=== PATIENT | male | born 1960 | race African-American/Black ===

== ENCOUNTER 2017-04-12 12:06 | Inpatient (IN) | payer OTHER ==
[2017-04-12] MEDS ORDERED: HYDROcodone/Acetaminophen 5/325 mg Tablet PO PRN (15:06)
[2017-04-12] MEDS ORDERED: Nitroglycerin 0.4 MG TAB (25 Tab Bottle) PO PRN (15:06)
[2017-04-12] MEDS ORDERED: Ondansetron ODT 4 MG TAB PO PRN (15:06)
[2017-04-12] MEDS ORDERED: Pepto Bismol Chew TAB PO PRN (15:06)
[2017-04-12 15:07] VITALS: BMI 38.0
[2017-04-12 16:05] LABS: Troponin I 0.121 ng/mL (< 0.028)
--- NOTE | 2017-04-12 16:27 | HP ---
DATE OF ADMISSION: 04/12/2017 CHIEF COMPLAINT: Shortness of breath. HISTORY OF PRESENT ILLNESS: This is a 56-year-old young -[place] male who presented to the ospital to [place] [facility] with acute shortness of breath. Patient mentioned that when he woke up this mo rning, was acutely short of breath and was unable to breathe and was unable to lie down on a flat bed . So he woke up and had some chest pain, so he decided to come to the ER. The patient was transferr ed from [place] [facility] and the patient was found to be acutely short of breath, but was able to stab ilize on 4 liters of nasal cannula. Patient had a chest x-ray showing evidence of pulmonary edema an d elevated BNP of 300 suggestive of new onset congestive heart failure. The patient denied having si milar symptoms in the past. He does complain of chest pain, but right now his symptoms are completel y resolved. He looks tachypneic. No nausea, no vomiting. PAST MEDICAL HISTORY: 1. Hypertension. 2. Type 2 diabetes mellitus. 3. History of depression. 4. History of congestive heart failure with EF of 35%-40%. 5. History of coronary artery disease. PAST SURGICAL HISTORY: He denies having any recent surgeries. SOCIAL HISTORY: The patient is a smoker. No history of alcohol, no history of illicit drug use. He lives with his . FAMILY HISTORY: Significant for diabetes in the mother and end-stage renal disease in his sister. HOME MEDICATIONS: Have been reviewed and reconciled. Please see the medication list. ALLERGIES: No known drug allergies. REVIEW OF SYSTEMS: The systems reviewed are, Cardiovascular: With evidence of shortness of breath and chest pain. Respiratory: The patient show ed evidence of hypoxia with shortness of breath. All other systems are reviewed and found to be nega tive at this time except the ones described in HPI. The following complete review of systems was neg ative, unless otherwise mentioned in the HPI or below: Constitutional: Weight loss or gain, sense o f well-being, ability to conduct usual activities, exercise tolerance. Skin/Breast: Rash, itching, changes in hair growth or loss, nail changes, breast lumps, tenderness, swelling, nipple discharge. Eyes: Vision, double vision, tearing, blind spots, pain. ENT/Mouth: Headaches (location, time of o nset, duration, precipitating factors), vertigo, lightheadedness, injury. Vision, double vision, tear ing, blind spots, pain, nose bleeding, colds, obstruction, discharge, dental difficulties, gingival b leeding, dentures, neck stiffness, pain, tenderness, masses in thyroid or other areas. Gastrointesti nal: Poor appetite, dysphagia, indigestion, abdominal pain, heartburn, eructation, nausea, vomiting, hematemesis, jaundice, constipation, or diarrhea, abnormal stools (andrea-colored, tarry, bloody, grea sy, foul smelling), flatulence, hemorrhoids, recent changes in bowel habits. Genitourinary: Urgency , frequency, dysuria, nocturia, hematuria, polyuria, oliguria, unusual (or change in) color of urine, stones, hesitancy, change in size of stream, dribbling, acute retention or incontinence, libido, pot ency. Musculoskeletal: Pain, swelling, redness or heat of muscles or joints, limitation, of motion, muscular weakness, atrophy, cramps. Neurologic/Psychiatric: Convulsions, paralyses, tremor, incoor dination, parasthesias, difficulties with memory of speech, sensory or motor disturbances, or muscula r coordination (ataxia, tremor), emotional problems, anxiety, depression, previous psychiatric care, unusual perceptions, hallucinations. Allergy/Immunologic: Skin rash, anemia, bleeding tendency, pee ydipsia, polyuria, intolerance to heat or cold. PHYSICAL EXAMINATION: VITAL SIGNS: Blood pressures are 169/85, heart rate is 66, respirations 24, saturation is 99% on 3 l iters. GENERAL: The patient is moderately built and moderately nourished status. He appears to be in mild distress with shortness of breath. He is seen sitting on the wheelchair, does not appear to be in ac [place] distress. HEENT: Atraumatic, normocephalic. PERRLA. Extraocular muscles were intact. Oral mucosa is pink an d moist. CARDIOVASCULAR: S1, S2 normal. No murmurs, rubs or gallops. LUNGS: Bilateral air entry was equal. Crackles were noted in the lower bases. ABDOMEN: Soft, nontender, no guarding, no rebound tenderness. Bowel sounds normal. MUSCULOSKELETAL: The patient has 1-2+ pedal edema up to the knees. No joint tenderness, no joint sw elling. SKIN: No cyanosis, no edema, no rash, no pallor. SURVEILLANCE SPECIALIST: Cranial nerve examination II-XII intact. NEUROLOGIC: No focal deficits were noted. LABORATORY DATA: Sodium is 142, potassium 4.2, chloride 111, bicarbonate is 21, BUN is 19, creatinin e 2.06. WBC 6.0, hemoglobin 11.8, hematocrit 37.1. His troponins are 0.146. BNP is 376. ASSESSMENT AND PLAN: 1. Acute congestive heart failure, likely diastolic dysfunction. 2. Acute hypoxic respiratory failure. 3. Non-ST elevation myocardial infarction. 4. History of type 2 diabetes mellitus. 5. Hypertension. 6. Hyperlipidemia. 7. History of coronary artery disease. 8. Acute on chronic kidney disease stage III. PLAN: 1. To start the patient on Lasix at 40 mg IV b.i.d. and continue to diurese the patient as there is clear evidence of pulmonary edema on chest x-ray. We will start the patient on spironolactone 12.5 m g daily, and also start him on Coreg at 3.125 mg p.o. We will get a 2D echo to look for any evidence of worsening of his EF. His previous EF was 2 years ago and that was around 45%. We will consult C ardiology. 2. The patient has evidence of acute hypoxia likely from CHF. We will continue the nasal cannula an d wean him off to keep the saturations more than 92%. There is no evidence of pneumonia at this time . We will closely monitor. 3. The patient has elevated creatinine, but his baseline creatinine is around 1.7-2. Most likely e patient has a cardiorenal syndrome. We will continue to treat with Lasix and will closely monitor. Avoid any other nephrotoxic medications. 4. The patient has type 2 diabetes mellitus. We will restart the patient's home medications. Plan to keep the blood sugar in 140-180. 5. Hypertension. The patient has poorly controlled hypertension. We will start the patient on his home medications and optimize his blood pressure, is to keep it less than 130/80. 6. History of coronary artery disease. We will start the patient on aspirin. The patient has eleva sarika troponins. The first troponin is elevated. We will repeat and look at the trend of the troponin s. We will follow up with the Cardiology recommendations at that time. 7. DVT prophylaxis. Lovenox 40 mg subcu daily. Dictating Physician, Ismael Boss, has spent 70 minutes on this patient.
--- NOTE | 2017-04-12 20:33 | CON ---
DATE OF CONSULTATION: 04/12/2017 HISTORY OF PRESENT: Patient is a 56-year-old gentleman who presents with increasing dyspnea. The patient has a long history of a cardiomyopathy. The patient was seen in 01/2015, and he was found to have a normal EKG. He subsequently underwent a cardiac catheterization. He was found to have a moderate decrease in left ventricular systolic function with estimated ejection fraction approximately 30%-35%. He was found to have a 20% lesion in the right coronary artery, but was otherwise free of significant disease. The patient was placed on medical therapy. He has not been compliant with his medications or follow up. The patient presented with increasing dyspnea. He denied having any chest discomfort. PAST MEDICAL HISTORY: 1. Cardiomyopathy. 2. Hypertension. 3. Diabetes mellitus. 4. Chronic renal failure. 5. Hypercholesterolemia. PAST SURGICAL HISTORY: Shoulder surgery. SOCIAL HISTORY: Patient has a long history of tobacco abuse. He denies any use of excess alcohol. He is . FAMILY HISTORY: There is a positive family history of coronary artery disease. MEDICATIONS: None. ALLERGIES: No known drug allergies. REVIEW OF SYSTEMS: Ten-point system otherwise unremarkable. PHYSICAL EXAMINATION: GENERAL/VITAL SIGNS: This is a middle-aged gentleman in mild distress with a blood pressure of 169/85, heart rate was 66. NECK: No jugular venous distention. LUNGS: Clear to auscultation. HEART: Regular rate and rhythm, normal S1, S2, no murmurs. ABDOMEN: Distended. EXTREMITIES: Showed no edema. SKIN: Warm and dry. NEUROLOGIC: Nonfocal. VASCULAR: Radial pulses are 2+. LABORATORY DATA: White blood count 6.0, hemoglobin 11.8, hematocrit 37.1, platelets are 206. Sodium is 142, potassium 4.0, chloride 111, bicarbonate 21, BUN 19, creatinine is 2.0, glucose 236. BNP was 376, troponin was 0.146. EKG revealed normal sinus rhythm with a premature ventricular contraction, T-wave abnormality suggestive of ischemia. IMPRESSION: 1. Congestive heart failure. 2. History of severe nonischemic cardiomyopathy. 3. Diabetes mellitus. 4. Hypertension. 5. Chronic renal failure. 6. Dyslipidemia. 7. Tobacco abuse. 8. Obesity. PLAN: This gentleman presents with mild congestive heart failure. He has been noncompliant with his medications. I explained the life-threatening consequences of being compliant with his medications and follow up. From a cardiac standpoint, the patient has been restarted on JESSE inhibitor therapy and Coreg. He has also been started on low-dose spironolactone. We will follow this patient with you through his hospitalization. KP
[2017-04-12] MEDS: Carvedilol 6.25 MG TAB PO SCH (20:39)
[2017-04-12] MEDS: Atorvastatin Calcium 40 MG TAB PO SCH (20:39)
[2017-04-12] MEDS ORDERED: Carvedilol 3.125 MG TAB PO SCH (21:00)
[2017-04-12] MEDS ORDERED: Enoxaparin Sodium 80 MG/0.8 ML SYRINGE SC SCH ×2 (21:00)
[2017-04-12] MEDS: Nitroglycerin 2% Ointment 1 INCH/1 GM Packet TOP SCH (23:06)
[2017-04-13 05:23] LABS: #Lymphocytes 1.1 thou/uL (1.20-3.40); #Monocytes 0.9 thou/uL (0.11-0.59); #Neutrophils 13.5 thou/uL (1.40-6.50); %Basophils 0.1 % (0.0-1.0); %Eosinophils 0.2 % (0.0-10.0); %Lymphocytes 6.9 % (21.0-51.0); %Monocytes 5.9 % (0.0-10.0); %Neutrophils 86.9 % (42.0-75.0); Hemoglobin 12.1 g/dL (14.0-18.0); Mean Corpuscular HGB CONC 32.1 g/dL (32.0-36.0); Mean Corpuscular Hemoglobin 29.1 pg (27.0-31.0); Mean Corpuscular Volume 90.6 fl (80.0-94.0); Mean Platelet Volume 9.2 fL (7.4-10.4); Platelet Count 241 thou/uL (130-400); RBC Distribution Width 13.8 % (11.5-14.5); Red Blood Cell (RBC) Count 4.16 mill/uL (4.70-6.10); White Blood Cell (WBC) Count 15.6 thou/uL (4.8-10.8)
[2017-04-13 05:34] LABS: Anion Gap 13 mmol/L (10-20); BUN (Urea Nitrogen) 24 mg/dL (8.4-25.7); Calc. Creatinine Clearance 66 mL/min (70-130); Calcium 9.4 mg/dL (7.8-10.44); Carbon Dioxide 25 mmol/L (22-29); Cardiac Risk 5.4 (Less than 4.5); Chloride 106 mmol/L (98-107); Cholesterol 226 mg/dl (< 200 Desired); Estimated GFR-MDRD 41; Glucose 155 mg/dL (70-105); HDL Cholesterol 42 mg/dL (>60 Neg Risk); LDL Cholesterol, Calculated 160 mg/dL; Potassium 3.9 mmol/L (3.5-5.1); Sodium 140 mmol/L (136-145); Triglycerides 121 mg/dL (Less than 150)
[2017-04-13] MEDS: Nitroglycerin 2% Ointment 1 INCH/1 GM Packet TOP SCH ×3 (05:42→21:40)
[2017-04-13] MEDS: Furosemide 40 MG/4 ML VIAL SLOW IVP SCH ×2 (05:43→13:49)
[2017-04-13] MEDS ORDERED: Spironolactone 25 MG TAB PO SCH (09:00)
[2017-04-13] MEDS ORDERED: Lisinopril 5 MG TAB PO SCH (09:00)
[2017-04-13] MEDS ORDERED: Lisinopril 2.5 MG TAB PO SCH (09:00)
[2017-04-13] MEDS: Enoxaparin Sodium 30 MG/0.3 ML SYRINGE SC SCH (09:43)
[2017-04-13] MEDS: Carvedilol 6.25 MG TAB PO SCH (09:43)
[2017-04-13] MEDS: Spironolactone 25 MG TAB PO SCH (09:44)
[2017-04-13] MEDS: Nicotine 14 MG PATCH TOP SCH (12:17)
[2017-04-13] MEDS ORDERED: Carvedilol 6.25 MG TAB PO SCH ×2 (12:30→21:00)
[2017-04-13] MEDS ORDERED: Lisinopril 10 MG TAB PO SCH (12:30)
--- NOTE | 2017-04-13 16:17 | PDOC.PN ---
- Subjective Encounter Start Date: 04/13/17 Encounter Start Time: 11:30 Patient is seen today, alert and oriented, No other Concern snoted. Discused with and patient about being compliant with his Home meds. - Objective Resuscitation Status: Resuscitation Status FULL:Full Resuscitation MAR Reviewed: Yes Vital Signs & Weight: Vital Signs (12 hours) Temp Pulse Pulse Pulse Resp BP BP 04/13/17 13:50 60 79 144/87 H 04/13/17 13:49 140/79 04/13/17 13:48 140/79 04/13/17 11:45 97.7 F 65 16 04/13/17 09:43 63 191/101 H 04/13/17 08:00 98.4 F 63 18 04/13/17 07:30 67 66 160/90 H BP BP Pulse Ox Pulse Ox Pulse Ox 04/13/17 13:50 151/84 H 97 98 04/13/17 13:49 04/13/17 13:48 04/13/17 11:45 140/79 98 04/13/17 09:43 04/13/17 08:00 191/101 H 96 04/13/17 07:30 144/81 H Weight Weight 260 lb I&O: 04/12/17 04/13/17 04/14/17 06:59 06:59 06:59 Intake Total 950 Balance 950 Result Diagrams: 04/13/17 04:21 04/13/17 04:21 Additional Labs: Accuchecks 04/13/17 11:05 POC Glucose 141 H Phys Exam - Physical Examination HEENT: PERRLA, moist MMs Neck: no nodes, no JVD Respiratory: wheezing present Cardiovascular: RRR, no significant murmur, no rub Gastrointestinal: soft, non-tender Musculoskeletal: pulses present, edema present Neurological: non-focal, normal sensation Lymphatic: no nodes Psychiatric: normal affect Dx/Plan (1) NSTEMI (non-ST elevated myocardial infarction) Code(s): I21.4 - NON-ST ELEVATION (NSTEMI) MYOCARDIAL INFARCTION Status: Acute Comment: PT is on Aspirin, And BB, ACEI. Will continue to Monitor Cardiology Following (2) CKD stage 3 due to type 2 diabetes mellitus Code(s): E11.22 - TYPE 2 DIABETES MELLITUS W DIABETIC CHRONIC KIDNEY DISEASE; N18.3 - CHRONIC KIDNEY DISEASE, STAGE 3 (MODERATE) Status: Chronic Comment: Persistant worsening from diuresis, but Pt has Cardio renal syndrome , will cotninue to Monitor (3) Chronic systolic (congestive) heart failure Code(s): I50.22 - CHRONIC SYSTOLIC (CONGESTIVE) HEART FAILURE Status: Acute Comment: Systolic Dysfuicntion, with Worsening EF, per Cardiology No further intervention at this time. (4) Hyperlipidemia Code(s): E78.5 - HYPERLIPIDEMIA, UNSPECIFIED Status: Chronic (5) Hypertension Code(s): I10 - ESSENTIAL (PRIMARY) HYPERTENSION Status: Chronic Comment: Uncontrolled, Will Increase ACEI and BB, will do hydralazine 20mg IV q 4 hrs PRN - Plan cont current plan of care, plan discussed w/ family, PT/OT, social work instructor, incentive spirometry, DVT proph w/lovenox * . - Discharge Day Encounter end time: 12:10 Review of Systems - Review of Systems Constitutional: negative: fever, chills, sweats, weakness, malaise, other ENT: negative: Ear Pain, Ear Discharge, Nose Pain, Nose Discharge, Nose Congestion, Mouth Pain, Mouth Swelling, Throat Pain, Throat Swelling, Other Respiratory: Cough, Shortness of Breath, SOB with Excertion Cardiovascular: negative: chest pain, palpitations, orthopnea, paroxysmal nocturnal dyspnea, edema, light headedness, other Gastrointestinal: negative: Nausea, Vomiting, Abdominal Pain, Diarrhea, Constipation, Melena, Hematochezia, Other Genitourinary: negative: Dysuria, Frequency, Incontinence, Hematuria, Retention , Other Musculoskeletal: negative: Neck Pain, Shoulder Pain, Arm Pain, Back Pain, Hand Pain, Leg Pain, Foot Pain, Other Skin: negative: Rash, Lesions, Ken, Bruising, Other - Medications/Allergies Allergies/Adverse Reactions: Allergies Allergy/AdvReac Type Severity Reaction Status Date / Time No Known Allergies Allergy Verified 04/12/17 15:10 Medications: Current Medications Hydrocodone Bitart/Acetaminophen (Graff 5/325) 1 tab PO Q4H PRN PRN Reason: Moderate Pain (4-6) Aspirin (Aspirin Chewable) 81 mg PO DAILY [facility] Last Admin: 04/13/17 09:42 Dose: 81 mg Atorvastatin Calcium (Lipitor) 40 mg PO HS [facility]IR[facility] Last Admin: 04/12/17 20:39 Dose: 40 mg Bismuth Subsalicylate (Pepto Bismol) 2 tab PO Q1H PRN PRN Reason: Diarrhea/Loose Stools Carvedilol (Coreg) 12.5 mg PO BID [facility] Enoxaparin Sodium (Lovenox) 30 mg SC 0900 [facility] Last Admin: 04/13/17 09:43 Dose: 30 mg Furosemide (Lasix) 40 mg SLOW IVP 0600,1400 [facility] Last Admin: 04/13/17 13:49 Dose: 40 mg Lisinopril (Zestril) 10 mg PO DAILY [facility] Nicotine (Nicoderm Patch) 14 mg TOP Q24HR [facility] Last Admin: 04/13/17 12:17 Dose: 14 mg Nitroglycerin (Nitrostat) 0.4 mg PO Q5MIN PRN PRN Reason: Chest Pain Nitroglycerin (Nitro-Bid 2% Ointment) 0.5 inch TOP Q8HR [facility] Last Admin: 04/13/17 13:50 Dose: Not Given Ondansetron HCl (Zofran Odt) 4 mg PO Q6H PRN PRN Reason: Nausea/Vomiting Spironolactone (Aldactone) 25 mg PO DAILY [facility] Last Admin: 04/13/17 09:44 Dose: 25 mg
--- NOTE | 2017-04-13 16:37 | RAD ---
EXAM: ONE VIEW CHEST 04/13/17 HISTORY: Shortness of breath. COMPARISON: 04/11/17. FINDINGS: Portable upright chest demonstrates persistent cardiomegaly. Pulmonary vessels are slightly prominent . Costophrenic angles are clear. No mass. No consolidation. No pneumothorax or osseous abnormalities. IMPRESSION: Cardiomegaly. Pulmonary vascular prominence. POS: [facility]
[2017-04-13] MEDS: Atorvastatin Calcium 40 MG TAB PO SCH (21:39)
[2017-04-14 05:19] LABS: #Basophils 0.1 thou/uL (0.0-0.2); #Eosinphils 0.1 thou/uL (0.0-0.7); #Lymphocytes 2.5 thou/uL (1.20-3.40); #Monocytes 0.7 thou/uL (0.11-0.59); %Basophils 1.1 % (0.0-1.0); %Eosinophils 1.5 % (0.0-10.0); %Lymphocytes 26.3 % (21.0-51.0); %Monocytes 7.1 % (0.0-10.0); %Neutrophils 64.1 % (42.0-75.0); Hemoglobin 12.9 g/dL (14.0-18.0); Mean Corpuscular HGB CONC 33.2 g/dL (32.0-36.0); Mean Corpuscular Hemoglobin 30.1 pg (27.0-31.0); Mean Corpuscular Volume 90.7 fl (80.0-94.0); Mean Platelet Volume 8.9 fL (7.4-10.4); Platelet Count 249 thou/uL (130-400); RBC Distribution Width 13.9 % (11.5-14.5); Red Blood Cell (RBC) Count 4.29 mill/uL (4.70-6.10); White Blood Cell (WBC) Count 9.4 thou/uL (4.8-10.8)
[2017-04-14 05:32] LABS: Anion Gap 11 mmol/L (10-20); BUN (Urea Nitrogen) 24 mg/dL (8.4-25.7); Calc. Creatinine Clearance 68 mL/min (70-130); Calcium 9.4 mg/dL (7.8-10.44); Carbon Dioxide 29 mmol/L (22-29); Chloride 105 mmol/L (98-107); Estimated GFR-MDRD 43; Glucose 139 mg/dL (70-105); Potassium 3.7 mmol/L (3.5-5.1); Sodium 141 mmol/L (136-145)
[2017-04-14] MEDS: Nitroglycerin 2% Ointment 1 INCH/1 GM Packet TOP SCH (06:00)
[2017-04-14] MEDS: Furosemide 40 MG/4 ML VIAL SLOW IVP SCH (06:00)
[2017-04-14] MEDS ORDERED: Carvedilol 6.25 MG TAB PO SCH (08:50)
[2017-04-14] MEDS: Enoxaparin Sodium 30 MG/0.3 ML SYRINGE SC SCH (08:53)
[2017-04-14] MEDS: Spironolactone 25 MG TAB PO SCH (08:54)
[2017-04-14] MEDS ORDERED: Carvedilol 25 MG TAB PO SCH (09:00)
[2017-04-14] MEDS ORDERED: Lisinopril 10 MG TAB PO SCH (09:00)
[2017-04-14] MEDS ORDERED: Lisinopril 5 MG TAB PO SCH (09:00)
[2017-04-14] MEDS ORDERED: BIDIL PO SCH (09:00)
--- NOTE | 2017-04-14 10:55 | DIS ---
DATE OF ADMISSION: 04/12/2017 DATE OF DISCHARGE: 04/14/2017 ADMITTING DIAGNOSIS: Acute hypoxic respiratory failure. DISCHARGE DIAGNOSES: Acute congestive heart failure exacerbation, systolic dysfunction. SECONDARY DIAGNOSES: 1. Non-ST elevation myocardial infarction. 2. Type 2 diabetes mellitus. 3. Hypertension. 4. Hyperlipidemia. 5. History of coronary artery disease. 6. Acute on chronic kidney disease stage 3. HEARING SCREEN COORDINATOR INVOLVED: Dr. Quiroz from Cardiology. HISTORY OF PRESENT ILLNESS AND HOSPITAL COURSE: In brief, this is a 56-year-old young -[place] male with known history of congestive heart failure and a known patient to Dr. Burkett, presented to [place] [facility] with acute shortness of breath and the patient was transferred here. The patient was found to have severe CHF exacerbation. The patient is very noncompliant with his medication, had ma rkedly elevated blood pressures and volume overload state. The patient was started on Lasix 40 mg IV b.i.d. and also started on spironolactone. The patient was on metoprolol at home, but was not takin g, so Coreg was started, but later on changed to metoprolol at home for the home dose. Patient was s een by Cardiology, Dr. Quiroz and suggested for compliance and take medications regularly and follo wed low sodium diet. Also recommended BiDil and given some samples for the patient to take. Patient was discharged home in stable condition. PHYSICAL EXAMINATION: VITAL SIGNS: Blood pressure is 131/70, heart rate is 57, respirations 16, saturation 97%. GENERAL: The patient is moderately built and moderately nourished, does not appear to be in any acut e distress. CARDIOVASCULAR: S1, S2 normal. No murmurs, rubs or gallops. LUNGS: Bilateral air entry was equal. No wheezing, no crackles. ABDOMEN: Soft and nontender. No guarding or rebound tenderness. Bowel sounds normal. MUSCULOSKELETAL: No calf tenderness. No pedal edema. No joint tenderness, no joint swelling. SKIN: No cyanosis, no erythema, no rash, no pallor. CENTRAL NERVOUS SYSTEM: Cranial nerve examination II-XII intact. No focal deficits were noted. HOME MEDICATIONS: 1. Aspirin 81 mg daily. 2. Lasix 40 mg p.o. b.i.d. 3. Glyburide 5 mg p.o. daily. 4. Hydrocodone 10/325 mg one tablet p.o. p.r.n. 5. BiDil 20/37.5 mg 1 tablet p.o. t.i.d. 6. Lisinopril 40 mg daily. 7. Metformin 1000 mg p.o. b.i.d. 8. Metoprolol 50 mg p.o. daily. 9. Simvastatin 10 mg p.o. at bedtime. 10. Spironolactone 25 mg p.o. daily. DISCHARGE INSTRUCTIONS: Continue activity as tolerated. Advised to follow up with a cardiac diet. Advised to continue the home medications without fail. Advised to follow up with Cardiology in 1-2 w eeks. Advised to return to the ER. The patient has persistent shortness of breath. Dictating physician, Ismael Boss, has spent 35 minutes with this patient on the day of discharge.
[2017-04-14 13:02] VITALS: TEMP 97.8
[2017-04-14] MEDS: Nicotine 14 MG PATCH TOP SCH (13:06)
[2017-04-14 15:40] VITALS: BP 139/79
== END 2017-04-14 13:21 | disposition home or self-care (01) | DRG 280 ==
LOC: ERS 12:06 → OBSVTOIN 13:11 → 2SW 13:11 → 2NO 04-13 14:25
PROVIDERS: ADMIT Internal Medicine; ATTEND Internal Medicine
DX: I13.0 Hypertensive heart and chronic kidney disease with heart failure and stage 1 through stage 4 chronic kidney disease, or unspecified chronic kidney disease (principal); I21.4 Non-ST elevation (NSTEMI) myocardial infarction; J96.01 Acute respiratory failure with hypoxia; I50.23 Acute on chronic systolic (congestive) heart failure; N17.9 Acute kidney failure, unspecified; E11.22 Type 2 diabetes mellitus with diabetic chronic kidney disease; N18.3 Chronic kidney disease, stage 3 (moderate); E78.5 Hyperlipidemia, unspecified; F17.210 Nicotine dependence, cigarettes, uncomplicated; E66.9 Obesity, unspecified; I42.9 Cardiomyopathy, unspecified; Z68.38 Body mass index [BMI] 38.0-38.9, adult
CPT/HCPCS: 36415; 36416; 71045; 80048; 80061; 83880; 85025; 93306; 93798; 94760; 99285; G8987-GO-CI; G8988-GO-CI; G8989-GO-CI; J1650; J1940

== ENCOUNTER 2018-04-13 22:36 | Observation (INO) | payer OTHER ==
[2018-04-13 23:21] LABS: Anion Gap 15 mmol/L (10-20); BUN (Urea Nitrogen) 23 mg/dL (8.4-25.7); Calc. Creatinine Clearance 0 mL/min (70-130); Calcium 8.7 mg/dL (7.8-10.44); Carbon Dioxide 23 mmol/L (22-29); Chloride 109 mmol/L (98-107); Estimated GFR-MDRD 30; Glucose 268 mg/dL (70-105); Potassium 4.5 mmol/L (3.5-5.1); Sodium 142 mmol/L (136-145)
[2018-04-14 02:46] LABS: CKMB 2.6 ng/mL (0-6.6)
[2018-04-14] MEDS ORDERED: Furosemide 40 MG/4 ML VIAL SLOW IVP SCH (06:00)
[2018-04-14 11:07] LABS: Anion Gap 14 mmol/L (10-20); BUN (Urea Nitrogen) 25 mg/dL (8.4-25.7); Calc. Creatinine Clearance 58 mL/min (70-130); Calcium 8.8 mg/dL (7.8-10.44); Carbon Dioxide 22 mmol/L (22-29); Chloride 108 mmol/L (98-107); Estimated GFR-MDRD 32; Glucose 276 mg/dL (70-105); Potassium 4.4 mmol/L (3.5-5.1); Sodium 140 mmol/L (136-145)
[2018-04-14] MEDS ORDERED: Senokot S 8.6-50 MG TAB PO PRN (11:21)
[2018-04-14] MEDS ORDERED: Guaifenesin DM 100-10/5 ML UDCUP PO PRN (11:21)
[2018-04-14] MEDS ORDERED: HumaLOG 300 UNITS/3 ML VIAL SC PRN (11:21)
[2018-04-14] MEDS ORDERED: Acetaminophen 325 MG TAB PO PRN (11:21)
[2018-04-14] MEDS ORDERED: Dextrose 50% Abboject 50 ML SYRINGE SLOW IVP PRN (11:21)
[2018-04-14] MEDS ORDERED: Dextrose 5% in Water 1,000 ML IV PRN (11:21)
[2018-04-14] MEDS ORDERED: Calcium Carbonate 500 MG ChewTAB PO PRN (11:21)
[2018-04-14] MEDS ORDERED: Doxycycline 100 MG CAP PO SCH (11:30)
[2018-04-14] MEDS ORDERED: Insulin Regular 300 UNITS/3 ML VIAL SC SCH (11:45)
--- NOTE | 2018-04-14 12:42 | HP ---
REASON FOR ADMISSION: Mild CHF exacerbation, COPD exacerbation. HISTORY OF PRESENTING ILLNESS: The patient gives history of having severe wheezing from yesterday evening. This got worse to the point that he told his mom and EMS was summoned. The patient initially went to [facility], from where he was transferred here. He is currently feeling better. His wheezing has come down a little bit. The patient states he normally ambulates inside the house. He has not seen Dr. Quiroz in a long time now. No complaints of fever. The patient continues to smoke half to one pack a day. No complaints of chest pain or palpitations at present. He is comfortable at 45 degrees head end elevation on the bed at present. PAST MEDICAL AND SURGICAL HISTORY: History of nonischemic cardiomyopathy with ejection fraction of around 25%; chronic kidney disease, stage 3; diabetes mellitus type 2; obesity; hypertension; dyslipidemia; tobacco abuse; and right shoulder surgery. CURRENT MEDICATIONS: The patient is on, 1. Clonidine 0.2 mg p.o. three times daily. 2. Glyburide 5 mg daily. 3. Lasix 40 mg daily. ALLERGIES: NO KNOWN DRUG ALLERGIES. PERSONAL HISTORY: Smokes 1 pack a day. Does not abuse alcohol or drugs. Lives with his mom. FAMILY HISTORY: Mother is healthy and is here at bedside. Father in his 70s. He had end-stage renal disease and also had cancer going to the spine with unknown primary. He also had benign prostatic hypertrophy in the past. CODE STATUS: Full. REVIEW OF SYSTEMS: CONSTITUTIONAL: Negative for weight loss or gain, ability to conduct usual activities. SKIN: Negative for rash, itching. EYES: Negative for double vision, pain. ENT/MOUTH: Negative for nose bleeding, neck stiffness, pain, tenderness. CARDIOVASCULAR: Negative for palpitations, dyspnea on exertion, orthopnea. RESPIRATORY: Negative for shortness of breath, wheezing, cough, hemoptysis, fever or night sweats. GASTROINTESTINAL: Negative for poor appetite, abdominal pain, heartburn, nausea, vomiting, constipation, or diarrhea. GENITOURINARY: Negative for urgency, frequency, dysuria, nocturia. MUSCULOSKELETAL: Negative for pain, swelling. NEUROLOGIC/PSYCHIATRIC: Negative for anxiety, depression. ALLERGY/IMMUNOLOGIC: Negative for skin rash, bleeding tendency. PHYSICAL EXAMINATION: GENERAL: The patient is a 57-year-old male, who is currently not in any acute distress. VITAL SIGNS: Blood pressure 160/86, pulse 58 per minute, respiratory rate 18 per minute, temperature 98.5 degrees Fahrenheit, and saturating 98% on room air. NECK: Supple. No elevated JVD. HEENT: Eyes; extraocular muscles intact. Pupils reacting to light. Oral cavity, mucous membranes are moist. No exudates or congestion. CARDIOVASCULAR SYSTEM: S1 and S2 heard. Regular rhythm. RESPIRATORY SYSTEM: Air entry 1+ bilateral. Scattered wheezes plus, basal rales plus. ABDOMEN: Soft. Bowel sounds heard. No tenderness, rigidity, or guarding. EXTREMITIES: Mild peripheral edema. No calf tenderness. VASCULAR SYSTEM: Peripheral pulses 1+ bilateral. No ischemic ulcerations or gangrene. CENTRAL NERVOUS SYSTEM: No gross focal deficits noted. The patient is a bit lethargic, but oriented well. psychiatric SYSTEM: The patient's mood is euthymic. No hallucinations or delusions. LABORATORY DATA: White count of 5, H and H 12 and 38, platelet count 201, MCV is 91 with 61% neutrophils. Electrolytes are stable. BUN 25, creatinine 2.4, serum bicarb 22, serum glucose is 276, AST 90, ALT 54, alkaline phosphatase 133, total bilirubin 0.6. BNP 311. Troponin I indeterminate, peaking up to 0.14. CK-MB 3.6, albumin is 3.2. Chest x-ray done shows pulmonary vascular congestion with no gross infiltrate. EKG done shows normal sinus rhythm at 68 beats per minute. There are signs of LVH seen. There is also T inversion seen in V5, V6, lead I and aVL. CLINICAL IMPRESSION AND PLAN: The patient will be under observation on telemetry for acute chronic obstructive pulmonary disease exacerbation, acute on chronic congestive heart failure exacerbation with nonischemic cardiomyopathy and ejection fraction of around 25%. Class B. He will be on Lasix 40 mg IV q.12 hourly. The patient has known history of chronic kidney disease, stage 3 and it will be closely monitored. He will be on DuoNebs and doxycycline for his COPD flare-up. We will hold off on steroids for now. We will continue him on glyburide 5 mg p.o. daily. He will also be on aspirin, small dose of Coreg. No EJSSE or ARBs in view of the patient's chronic kidney disease, stage 3, which might get worse with diuresis. Echo with 2D Doppler for LV function will be obtained. Cardiology consultation with Dr. Quiroz, his cardiac cath rn, will be obtained as well. He has been advised to ambulate in the hallway as tolerated. We will continue to closely monitor him on telemetry. Job ID: [id number]
[2018-04-14] MEDS: Furosemide 40 MG/4 ML VIAL SLOW IVP SCH (12:58)
[2018-04-14] MEDS: Nicotine 14 MG PATCH TD SCH (12:59)
[2018-04-14] MEDS: hydrALAZINE 25 MG TAB PO SCH ×2 (14:04→21:12)
[2018-04-14] MEDS: Isosorbide Dinitrate 20 MG TAB PO SCH ×2 (14:04→21:13)
--- NOTE | 2018-04-14 14:52 | CON ---
DATE OF CONSULTATION: HISTORY OF PRESENT ILLNESS: The patient is a pleasant 57-year-old gentleman with a history of nonischemic cardiomyopathy, who presented with increasing dyspnea. The patient was seen in 2014 and underwent a cardiac evaluation. He underwent a cardiac catheterization and found to have a moderate decrease in left ventricular systolic function, estimated ejection fraction for 30% to 35%. He had mild CAD with a 20 % RCA lesion. The patient subsequently has been on medical therapy. He has a history of noncompliance. He was readmitted in March 2017 with congestive heart failure.His medications were adjusted. He has not been coming for followup. He states he has been compliant with his medications. The patient was taken off his Lasix and noted slowly developing progressive edema and increasing dyspnea. He denied having chest discomfort. PAST MEDICAL HISTORY: 1. Cardiomyopathy. 2. Hypertension. 3. Diabetes mellitus. 4. Dyslipidemia. 5. Chronic renal failure. 6. Osteoarthritis. PAST SURGICAL HISTORY: Shoulder surgery. SOCIAL HISTORY: Long history of tobacco abuse. FAMILY HISTORY: Positive family history of heart disease. MEDICATIONS: 1. Coreg 25 b.i.d. 2. BiDil 20/37.5 t.i.d. 3. Lipitor 40 at bedtime. 4. Aspirin 81 daily. REVIEW OF SYSTEMS: Ten-point system otherwise unremarkable. PHYSICAL EXAMINATION: GENERAL: Obese gentleman, in no acute distress. VITAL SIGNS: With a blood pressure 161/89. NECK: Showed no jugular venous distention. LUNGS: Clear to auscultation. HEART: Regular rate and rhythm. Normal S1 and S2. 1/6 systolic murmur. ABDOMEN: Distended. EXTREMITIES: Showed no edema. VASCULAR: Radial pulses are 2+. NEUROLOGIC: Nonfocal. LABORATORY DATA: Sodium 140, potassium 4.4, chloride 108, bicarbonate 22, BUN 25, and creatinine 2.49. Troponin 0.146 and BNP 320. His white blood cell count was 5.2, hemoglobin 12.0, hematocrit 38.2, and platelets were 201. His EKG revealed him to have normal sinus rhythm, left ventricular hypertrophy with a T-wave abnormality suggestive of ischemia. IMPRESSION: 1. Congestive heart failure. 2. Cardiomyopathy. 3. History of mild coronary artery disease. 4. Chronic renal failure. 5. Diabetes mellitus. 6. Dyslipidemia. 7. Obesity. 8. Tobacco abuse. 9. Noncompliance. This gentleman presents with congestive heart failure. He reports that he has been compliant with his medications. From a cardiac standpoint, we will restart the patient on BiDil. We will also increase the dose of his Coreg. We will check the patient's echocardiogram and follow this patient with you through his hospitalization. Job ID: [id number] MTDD
[2018-04-14] MEDS: HumaLOG 300 UNITS/3 ML VIAL SC PRN (17:58)
[2018-04-14] MEDS ORDERED: Carvedilol 3.125 MG TAB PO SCH (21:00)
[2018-04-14] MEDS ORDERED: Atorvastatin Calcium 40 MG TAB PO SCH (21:00)
[2018-04-14] MEDS: Doxycycline 100 MG CAP PO SCH (21:11)
[2018-04-14] MEDS: Carvedilol 25 MG TAB PO SCH (21:11)
[2018-04-15 05:04] LABS: #Basophils 0.1 thou/uL (0.0-0.2); #Eosinphils 0.2 thou/uL (0.0-0.7); #Lymphocytes 1.9 thou/uL (1.20-3.40); #Monocytes 0.8 thou/uL (0.11-0.59); #Neutrophils 4.2 thou/uL (1.40-6.50); %Basophils 0.8 % (0.0-1.0); %Eosinophils 2.5 % (0.0-10.0); %Lymphocytes 27.2 % (21.0-51.0); %Monocytes 10.7 % (0.0-10.0); %Neutrophils 58.7 % (42.0-75.0); Hemoglobin 12.2 g/dL (14.0-18.0); Mean Corpuscular HGB CONC 32.7 g/dL (32.0-36.0); Mean Corpuscular Hemoglobin 29.4 pg (27.0-31.0); Mean Platelet Volume 9.5 fL (7.4-10.4); Platelet Count 200 thou/uL (130-400); Red Blood Cell (RBC) Count 4.16 mill/uL (4.70-6.10); White Blood Cell (WBC) Count 7.1 thou/uL (4.8-10.8)
[2018-04-15 05:21] LABS: Anion Gap 14 mmol/L (10-20); BUN (Urea Nitrogen) 25 mg/dL (8.4-25.7); Calc. Creatinine Clearance 57 mL/min (70-130); Calcium 9.3 mg/dL (7.8-10.44); Carbon Dioxide 24 mmol/L (22-29); Chloride 104 mmol/L (98-107); Estimated GFR-MDRD 32; Glucose 222 mg/dL (70-105); Potassium 3.9 mmol/L (3.5-5.1); Sodium 138 mmol/L (136-145)
[2018-04-15] MEDS: Furosemide 40 MG/4 ML VIAL SLOW IVP SCH (05:45)
[2018-04-15] MEDS: HumaLOG 300 UNITS/3 ML VIAL SC PRN ×2 (06:35→12:17)
[2018-04-15] MEDS ORDERED: glyBURIDE 5 MG TAB PO SCH (07:30)
[2018-04-15] MEDS ORDERED: Aspirin Chewable 81 MG TAB PO SCH (09:00)
[2018-04-15] MEDS ORDERED: Enoxaparin Sodium 40 MG/0.4 ML SYRINGE SC SCH (09:00)
[2018-04-15] MEDS: hydrALAZINE 25 MG TAB PO SCH (09:17)
[2018-04-15] MEDS: Carvedilol 25 MG TAB PO SCH (09:17)
[2018-04-15] MEDS: Isosorbide Dinitrate 20 MG TAB PO SCH (09:17)
[2018-04-15] MEDS: Doxycycline 100 MG CAP PO SCH (09:18)
[2018-04-15] MEDS: Nicotine 14 MG PATCH TD SCH (12:23)
[2018-04-15 12:55] VITALS: TEMP 98.7
[2018-04-15 13:01] VITALS: BP 96/54
--- NOTE | 2018-04-15 13:59 | PDOC.PN ---
- Subjective Encounter Start Date: 04/15/18 Encounter Start Time: 10:00 Subjective: no sob, feels better -: is amb in room -: wants to go home - Objective Resuscitation Status - Order Detail: 04/14/18 11:16 Resuscitation Status Routine Resuscitation Status: FULL: Full Resuscitation MAR Reviewed: Yes Vital Signs & Weight: Vital Signs (12 hours) Temp Pulse Pulse Pulse Resp BP BP 04/15/18 12:57 62 66 96/54 L 04/15/18 11:33 98.7 F 57 L 20 04/15/18 09:17 64 164/88 H 04/15/18 08:03 98.0 F 64 20 04/15/18 07:00 56 L 18 04/15/18 04:12 98.6 F 70 18 BP BP Pulse Ox Pulse Ox Pulse Ox 04/15/18 12:57 139/67 95 98 04/15/18 11:33 133/60 98 04/15/18 09:17 04/15/18 08:03 164/88 H 97 04/15/18 07:00 98 04/15/18 04:12 146/84 H 94 L Weight Weight 274 lb 12.8 oz I&O: 04/14/18 04/15/18 04/16/18 06:59 06:59 06:59 Intake Total 480 1684 Output Total 1871 6745 Balance -8435 -0909 Result Diagrams: 04/15/18 04:38 04/15/18 04:38 Additional Labs: Accuchecks 04/15/18 04/15/18 04/14/18 11:37 05:44 21:09 POC Glucose 363 H 212 H 256 H Phys Exam - Physical Examination HEENT: PERRLA, moist MMs Neck: no JVD, supple Respiratory: no wheezing, no rales Cardiovascular: RRR, no significant murmur Gastrointestinal: soft, non-tender, no distention, positive bowel sounds Musculoskeletal: no edema, pulses present Neurological: non-focal, moves all 4 limbs Psychiatric: normal affect, A&O x 3 Dx/Plan (1) COPD with exacerbation Code(s): J44.1 - CHRONIC OBSTRUCTIVE PULMONARY DISEASE W (ACUTE) EXACERBATION Status: Acute (2) CKD (chronic kidney disease) stage 3, GFR 30-59 ml/min Status: Chronic (3) Chronic systolic (congestive) heart failure Code(s): I50.22 - CHRONIC SYSTOLIC (CONGESTIVE) HEART FAILURE Status: Chronic Comment: with mild exacerbation, stage B (4) Hyperlipidemia Code(s): E78.5 - HYPERLIPIDEMIA, UNSPECIFIED Status: Chronic Qualifiers: Hyperlipidemia type: unspecified Qualified Code(s): E78.5 - Hyperlipidemia , unspecified (5) Hypertension Code(s): I10 - ESSENTIAL (PRIMARY) HYPERTENSION Status: Chronic - Plan hemostable -: counselled reg med and dietary compliance -: has f/u appt with nephr and pcp -: dc pt home * .
--- NOTE | 2018-04-17 07:18 | DIS ---
DATE OF ADMISSION: 04/13/2018 DATE OF DISCHARGE: 04/15/2018 DISCHARGE DISPOSITION: To home. PRIMARY DISCHARGE DIAGNOSES: 1. Acute on chronic congestive heart failure exacerbation with systolic dysfunction. 2. Chronic obstructive pulmonary disease with exacerbation. 3. Chronic kidney disease, stage 3. 4. Dyslipidemia. 5. Hypertension. PROCEDURES DONE DURING HOSPITALIZATION: The patient had echo with 2D Doppler done, which showed EF of 35% to 40%. There was [id number] mitral regurgitation, diastolic dysfunction. Chest x-ray done on the day of admission showed pulmonary vascular congestion with no focal consolidation. Hemoglobin and hematocrit of 12 and 37, platelet count 200, white count of 7, MCV is 90 with 58% neutrophils. BUN and creatinine were 25 and 2.5 on the day of discharge. TSH 1.1. Troponin was indeterminate, peaking up to 0.14. CK-MB 2.6. BNP was 311. INPATIENT CONSULT: Dr. Quiroz for Cardiology. DISCHARGE MEDICATIONS: 1. Aspirin 81 mg p.o. daily. 2. Lipitor 40 mg p.o. at bedtime. 3. Coreg 25 mg twice daily. 4. Lasix 40 mg p.o. daily. 5. Hydralazine 37.5 mg p.o. three times daily. 6. Isordil 20 mg p.o. three times daily. 7. Glyburide 5 mg p.o. daily. ALLERGIES: NO KNOWN DRUG ALLERGIES. DISCHARGE PLAN: The patient to follow up with Dr. Quiroz, as advised and primary care physician in 1 week. BRIEF COURSE DURING HOSPITALIZATION: The patient initially came to ER with complaints of shortness of breath and wheezing. He was essentially admitted for mild CHF exacerbation and COPD exacerbation with ongoing smoking history. The patient also is noncompliant with diet and sometimes medications as well. He was placed on doxycycline, DuoNebs, and mild diuresis. He has responded well to above measures. Dr. Quiroz has evaluated him during his stay here as well. He is hemodynamically stable prior to discharge. The patient has ambulated in the hallway and is feeling comfortable going home. He was counseled with regard to dietary and medication compliance. Please see a [id number] documentation for the day of discharge on [facility]. Job ID: [id number]
== END 2018-04-15 12:57 | disposition home or self-care (01) ==
LOC: ERS 22:36 → 2SW 23:59
PROVIDERS: ADMIT Internal Medicine; ATTEND Internal Medicine
DX: I13.0 Hypertensive heart and chronic kidney disease with heart failure and stage 1 through stage 4 chronic kidney disease, or unspecified chronic kidney disease (principal); E11.22 Type 2 diabetes mellitus with diabetic chronic kidney disease; N18.3 Chronic kidney disease, stage 3 (moderate); I50.23 Acute on chronic systolic (congestive) heart failure; I42.0 Dilated cardiomyopathy; J44.1 Chronic obstructive pulmonary disease with (acute) exacerbation; E78.5 Hyperlipidemia, unspecified; E66.9 Obesity, unspecified; Z68.41 Body mass index [BMI] 40.0-44.9, adult; F17.210 Nicotine dependence, cigarettes, uncomplicated; M19.90 Unspecified osteoarthritis, unspecified site; Z79.82 Long term (current) use of aspirin; Z79.899 Other long term (current) drug therapy; Z98.890 Other specified postprocedural states
CPT/HCPCS: 36415; 36416; 80048; 82553; 83880; 84443; 84484; 85025; 93005; 93306; 93798; 94640; 94760; 96372; 96374; 96376; G0378; J1650; J1815; J1940; J7620

== ENCOUNTER 2020-03-13 03:30 | Inpatient (IN) | payer OTHER ==
[2020-03-13 04:03] LABS: Actual Bicarbonate (HCO3a) 16.6 mEq/L (22-28); Analyzer IN Cardio ER; Base Excess (BEa) -7.8 mEq/L (-2.0 to +3.0); CO2 Tension 30.7 mmHg (35.0-45.0); Carboxyhemoglobin (COHb) 2.1 gm% (0.0-3.0); Hemoglobin (Hb) 12.9 g/dL (14.0-18.0); O2 Tension (PaO2), arterial 100.2 mmHg (> 80.0); Potassium - ABG Lab 5.03 mmol/L (3.70-5.30); pH, Arterial 7.35 (7.35-7.45)
[2020-03-13 04:04] LABS: #Basophils 0.1 thou/uL (0.0-0.2); #Eosinphils 0.1 thou/uL (0.0-0.7); #Lymphocytes 2.1 thou/uL (1.20-3.40); #Monocytes 0.6 thou/uL (0.11-0.59); #Neutrophils 5.6 thou/uL (1.40-6.50); %Basophils 1.4 % (0.0-1.0); %Eosinophils 0.6 % (0.0-10.0); %Lymphocytes 24.5 % (21.0-51.0); %Neutrophils 66.6 % (42.0-75.0); Hemoglobin 12.5 g/dL (14.0-18.0); Mean Corpuscular HGB CONC 34.5 g/dL (32.0-36.0); Mean Corpuscular Hemoglobin 29.9 pg (27.0-31.0); Mean Corpuscular Volume 86.8 fL (78.0-98.0); Mean Platelet Volume 9.2 fL (7.4-10.4); Platelet Count 190 thou/uL (130-400); RBC Distribution Width 13.4 % (11.5-14.5); Red Blood Cell (RBC) Count 4.16 mill/uL (4.70-6.10); White Blood Cell (WBC) Count 8.4 thou/uL (4.8-10.8)
[2020-03-13 04:05] LABS: ALV-art Gradient 75.325 mmHg (0-20); Puncture Site RRA
[2020-03-13 04:29] LABS: ALT (SGPT) 34 U/L (8-55); AST (SGOT) 22 U/L (5-34); Albumin 4.3 g/dL (3.5-5.0); Alkaline Phosphatase 139 U/L (40-110); BUN (Urea Nitrogen) 60 mg/dL (8.4-25.7); Bilirubin, Total 0.6 mg/dL (0.2-1.2); Calc. Creatinine Clearance 0 mL/min (70-130); Calcium 8.9 mg/dL (7.8-10.44); Chloride 104 mmol/L (98-107); Globulin 3.7 g/dL (2.4-3.5); Glucose 345 mg/dL (70-105); Potassium 6.5 mmol/L (3.5-5.1); Sodium 131 mmol/L (136-145)
[2020-03-13] MEDS ORDERED: Insulin Regular 300 UNITS/3 ML VIAL ONE (04:52)
[2020-03-13] MEDS ORDERED: Sodium Bicarb 50 MEQ/50 ML Abboject 8.4% SYRINGE ONE (04:52)
[2020-03-13] MEDS ORDERED: Dextrose 50% Abboject 50 ML SYRINGE ONE (04:52)
[2020-03-13] MEDS ORDERED: Calcium Chloride 1 GM/10 ML Abboject SYRINGE ONE (04:52)
[2020-03-13 04:58] LABS: CKMB 7.9 ng/mL (0-6.6)
[2020-03-13] MEDS ORDERED: Aspirin 325 MG TAB ONE (05:11)
[2020-03-13 05:19] LABS: Carbon Dioxide 16 mmol/L (22-29)
[2020-03-13 05:22] LABS: Anion Gap 18 mmol/L (10-20)
[2020-03-13] MEDS ORDERED: Sodium Bicarbonate 150 MEQ in Dextrose 5% in Water 1,000 ML IV SCH ×2 (06:15→08:58)
[2020-03-13 07:27] LABS: Troponin I 0.263 ng/mL (< 0.028)
--- NOTE | 2020-03-13 07:35 | RAD ---
Portable frontal chest radiograph: 03/13/2020 COMPARISON: 04/13/2018 HISTORY: Shortness of breath, dyspnea FINDINGS: There is prominence of the cardiac silhouette. No pneumothorax or pleural fluid. No focal c onsolidation or alveolar edema. IMPRESSION: Prominent cardiac silhouette with no focal consolidation or alveolar edema.
[2020-03-13] MEDS ORDERED: Acetaminophen 325 MG TAB PO PRN (08:54)
[2020-03-13 08:55] LABS: Anion Gap 17 mmol/L (10-20); BUN (Urea Nitrogen) 61 mg/dL (8.4-25.7); Calc. Creatinine Clearance 0 mL/min (70-130); Calcium 9.2 mg/dL (7.8-10.44); Carbon Dioxide 18 mmol/L (22-29); Chloride 105 mmol/L (98-107); Glucose 250 mg/dL (70-105); Potassium 4.6 mmol/L (3.5-5.1); Sodium 135 mmol/L (136-145)
[2020-03-13 08:56] LABS: Anion Gap 17 mmol/L (10-20); BUN (Urea Nitrogen) 59 mg/dL (8.4-25.7); Calc. Creatinine Clearance 0 mL/min (70-130); Calcium 8.9 mg/dL (7.8-10.44); Carbon Dioxide 17 mmol/L (22-29); Chloride 104 mmol/L (98-107); Glucose 260 mg/dL (70-105); Potassium 4.7 mmol/L (3.5-5.1); Sodium 133 mmol/L (136-145)
[2020-03-13] MEDS ORDERED: Dextrose 5% in Water 1,000 ML IV PRN (09:09)
[2020-03-13] MEDS ORDERED: Dextrose 50% Abboject 50 ML SYRINGE SLOW IVP PRN (09:09)
--- NOTE | 2020-03-13 09:26 | HP ---
CHIEF COMPLAINT: Shortness of breath. HISTORY OF PRESENT ILLNESS: The patient is a 59-year-old male with past medical history of hypertension, diabetes mellitus, hyperlipidemia, chronic kidney disease stage 3, and heart failure with reduced EF, 35% to 40%, on his last echocardiogram in 2019, who presented to the hospital with complaints of shortness of breath and central chest pain. The patient's symptoms started last night and lasted until his presentation to the ER. He does reportedly use CPAP at home for sleep apnea. He has been compliant with his medications recently. The patient denies orthopnea or PND. His chest pain is nonradiating and tight in nature and is not associated with palpitations or dizziness. He denies cough, nausea, or vomiting. In the ER, the patient was found to be mildly bradycardic and his creatinine level and potassium levels were elevated above his baseline. Chest x-ray revealed cardiomegaly without evidence of pulmonary edema. PAST MEDICAL HISTORY: As noted above. PAST SURGICAL HISTORY: Includes right shoulder surgery. SOCIAL HISTORY: The patient drinks alcohol socially. Denies alcohol use. He is currently a tobacco smoker. FAMILY HISTORY: Heart disease in his father that the patient does not know what it was. PHYSICAL EXAMINATION: GENERAL: The patient is alert and oriented x3. HEENT: Head is normocephalic and atraumatic. Extraocular muscles are intact. NECK: Supple. CHEST: Clear to auscultation bilaterally. CARDIOVASCULAR: Revealed bradycardia with normal S1 and S2 and regular rhythm. ABDOMEN: Soft, nontender, nondistended. EXTREMITIES: Did not show any edema. NEUROLOGIC: Unremarkable for any focal deficits. ASSESSMENT: 1. Chest pain, rule out ACS. 2. Acute kidney injury superimposed on chronic kidney disease. 3. Hyperkalemia. 4. Metabolic acidosis. 5. Elevated troponin due to demand ischemia. 6. Hypertension. 7. Diabetes mellitus. PLAN: The patient will be placed on telemetry. He received IV bicarbonate and Kayexalate in the ER and his repeat potassium level is better. Nephrology consulted. We will hold his Lasix as there is no evidence of pulmonary edema and his BNP is low to allow for the kidney to recover. Monitor intake and output. Continue aspirin, atorvastatin, hydralazine, and isosorbide dinitrate. Hold glyburide due to renal failure and hold carvedilol due to bradycardia. Continue to trend his troponins. Job ID: [id number]
[2020-03-13] MEDS: Aspirin Chewable 81 MG TAB PO SCH (10:15)
[2020-03-13] MEDS: hydrALAZINE 25 MG TAB PO SCH ×3 (10:15→21:40)
[2020-03-13] MEDS: Isosorbide Dinitrate 20 MG TAB PO SCH ×3 (10:16→21:41)
[2020-03-13] MEDS: Heparin 5,000 UNITS/ML VIAL SC SCH ×3 (10:30→21:40)
--- NOTE | 2020-03-13 10:30 | CON ---
DATE OF CONSULTATION: REASON FOR CONSULTATION: Hyperkalemia. HISTORY OF PRESENTING ILLNESS: This is a very pleasant 59-year-old gentleman who presented to the hospital with shortness of breath. The patient was noted to have a potassium of 6 and at congestive heart failure. The patient denies any chest pain at this time, but had chest pain prior. The patient is on CPAP. PAST MEDICAL HISTORY: Significant for chronic kidney disease, congestive heart failure, hyperlipidemia, hypertension. SOCIAL HISTORY: The patient drinks. SURGICAL HISTORY: Includes shoulder surgery. FAMILY HISTORY: Negative for ESRD. ALLERGIES: REVIEWED. MEDICATIONS: Home medications list reviewed. Hospital medications reviewed. REVIEW OF SYSTEMS: 15-point review of systems was performed, negative except for positives noted above. HEENT: Eyes intact, no diplopia. Ears: No hearing loss or earache. Nose: No discharge or bleeding. CHEST: No cough or phlegm. ABDOMEN: No nausea or vomiting. GENITOURINARY: No hematuria. No Martinez catheter. MUSCULOSKELETAL: No low back pain. No joint swelling or pain. NEUROLOGICAL: No syncope. No seizures. SKIN: No complaints of rash or itching. PSYCHIATRIC: No depression. CONSTITUTIONAL: No weight loss or loss of appetite. PHYSICAL EXAMINATION: GENERAL: The patient is awake and alert. VITAL SIGNS: Pulse 70, breathing 16, blood pressure 130/70. HEENT: Head normocephalic and atraumatic. Eyes intact, no ulcers. Nose intact, no ulcers. Ears intact, no ulcers. NECK: Supple. No JVD. CHEST: Symmetrical and clear. CARDIOVASCULAR: Shows S1 and S2, no rub, no murmur. GASTROINTESTINAL: Abdomen is soft, bowel sounds positive. EXTREMITIES: Show no edema or ulcers. SKIN: Shows no rash or petechiae. MUSCULOSKELETAL: Shows no joint swelling or stiffness. GENITOURINARY: Shows no Martinez or CVA tenderness. NEUROLOGIC: Motor intact. Cranial nerves intact. LABORATORY DATA: Hemoglobin 12.5. Creatinine 4.1, potassium 6.5, bicarb 16. ASSESSMENT: 1. Acute kidney injury on chronic kidney disease due to cardiorenal syndrome and other etiologies including hypertension. We will plan for dialysis as indicated. 2. Hyperkalemia. Start bicarb drip. 3. Metabolic acidosis. Start bicarb drip. We will plan dialysis as needed. No urgent indication for dialysis at this time. Job ID: [id number]
[2020-03-13 10:33] LABS: Troponin I 0.268 ng/mL (< 0.028)
[2020-03-13] MEDS ORDERED: Aspirin Chewable 81 MG TAB ONE (11:05)
[2020-03-13] MEDS ORDERED: hydrALAZINE 25 MG TAB ONE (11:05)
[2020-03-13 13:23] LABS: Troponin I 0.212 ng/mL (< 0.028)
[2020-03-13 13:39] LABS: SARS-CoV-2 MS2 Positive; SARS-CoV-2 N Gene Negative; SARS-CoV-2 S Gene Negative; SARS-CoV-2 by NAA Not Detected (NotDetected); SARS-CoV-2 orf1ab Negative
[2020-03-13] MEDS: HumaLOG 300 UNITS/3 ML VIAL SC PRN (17:30)
--- NOTE | 2020-03-13 17:49 | ULT ---
PREDIALYSIS ACCESS DUPLEX EXAMINATION: 03/13/20 INDICATION: End-stage renal disease and vein mapping. FINDINGS: RIGHT UPPER EXTREMITY BRACHIAL ARTERY: 5.2 mm RADIAL ARTERY: 1.7 mm ULNAR ARTERY: 1.2 mm CEPHALIC VEIN Proximal Arm: 4.5 mm Mid Arm: 4.2 mm Distal Arm: 4.5 mm Antecubital Fossa: 3.9 mm Proximal Forearm: 3.7 mm Mid Forearm: 2.6 mm Distal Forearm: 2.5 mm BASILIC VEIN Proximal Arm: 1.2 mm Mid Arm: 1.7 mm Distal Arm: 1.1 mm Antecubital Fossa: 0.9 mm Proximal Forearm: 1.8 mm Mid Forearm: 0.8 mm Distal Forearm: 0.8 mm LEFT UPPER EXTREMITY BRACHIAL ARTERY: 4.5 mm RADIAL ARTERY: 2.3 mm ULNAR ARTERY: 3.4 mm CEPHALIC VEIN Proximal Arm: 4.3 mm Mid Arm: 4.3 mm Distal Arm: 2.7 mm Antecubital Fossa: It was noncompressible in the distal upper arm/elbow. Proximal Forearm: 2.9 mm Mid Forearm: 2.3 mm Distal Forearm: 3.3 mm BASILIC VEIN Proximal Arm: 5.6 mm Mid Arm: 1.6 mm Distal Arm: 3.0 mm Antecubital Fossa: 1.5 mm Proximal Forearm: 1.3 mm Mid Forearm: 1.2 mm Distal Forearm: 0.9 mm IMPRESSION: 1. Predialysis access duplex exam as above. 2. Occlusive thrombus seen at the level of the left upper extremity cephalic vein of the distal arm. POS: ZULEMA
[2020-03-13] MEDS: Atorvastatin Calcium 40 MG TAB PO SCH (21:41)
[2020-03-14 04:48] LABS: #Basophils 0.1 thou/uL (0.0-0.2); #Eosinphils 0.1 thou/uL (0.0-0.7); #Lymphocytes 2.5 thou/uL (1.20-3.40); #Monocytes 0.5 thou/uL (0.11-0.59); #Neutrophils 3.1 thou/uL (1.40-6.50); %Basophils 1.2 % (0.0-1.0); %Eosinophils 1.5 % (0.0-10.0); %Lymphocytes 40.1 % (21.0-51.0); %Monocytes 7.3 % (0.0-10.0); %Neutrophils 49.9 % (42.0-75.0); Hemoglobin 11.2 g/dL (14.0-18.0); Mean Corpuscular HGB CONC 33.7 g/dL (32.0-36.0); Mean Corpuscular Hemoglobin 29.8 pg (27.0-31.0); Mean Corpuscular Volume 88.4 fL (78.0-98.0); Mean Platelet Volume 9.3 fL (7.4-10.4); Platelet Count 168 thou/uL (130-400); RBC Distribution Width 13.6 % (11.5-14.5); Red Blood Cell (RBC) Count 3.74 mill/uL (4.70-6.10); White Blood Cell (WBC) Count 6.2 thou/uL (4.8-10.8)
[2020-03-14 04:51] LABS: Hemoglobin A1c 13.1 % (4.0-6.0)
[2020-03-14 05:10] LABS: Anion Gap 16 mmol/L (10-20); BUN (Urea Nitrogen) 60 mg/dL (8.4-25.7); Calc. Creatinine Clearance 34 mL/min (70-130); Calcium 8.5 mg/dL (7.8-10.44); Carbon Dioxide 18 mmol/L (22-29); Chloride 107 mmol/L (98-107); Glucose 332 mg/dL (70-105); Potassium 4.6 mmol/L (3.5-5.1); Sodium 136 mmol/L (136-145)
[2020-03-14] MEDS: HumaLOG 300 UNITS/3 ML VIAL SC PRN ×3 (06:42→17:58)
[2020-03-14] MEDS: Heparin 5,000 UNITS/ML VIAL SC SCH ×3 (08:09→21:03)
[2020-03-14] MEDS: hydrALAZINE 25 MG TAB PO SCH ×3 (08:09→21:03)
[2020-03-14] MEDS: Isosorbide Dinitrate 20 MG TAB PO SCH ×3 (08:09→21:03)
[2020-03-14] MEDS: Aspirin Chewable 81 MG TAB PO SCH (08:09)
--- NOTE | 2020-03-14 11:02 | PRG ---
DATE OF SERVICE: 03/14/2020 SUBJECTIVE: A 59-year-old gentleman, being seen for stage 4 chronic kidney disease. The patient denies any nausea, vomiting, or chest pain. PHYSICAL EXAMINATION: GENERAL: The patient is awake and alert. VITAL SIGNS: Afebrile, pulse 51, breathing at 16, blood pressure 144/74. HEENT: Head normocephalic and atraumatic. Eyes intact, no ulcers. Nose intact, no ulcers. Ears intact, no ulcers. NECK: Supple. No JVD. CHEST: Symmetrical and clear. CARDIOVASCULAR: Shows S1 and S2, no rub, no murmur. GASTROINTESTINAL: Abdomen is soft, bowel sounds positive. EXTREMITIES: Show no edema or ulcers. SKIN: Shows no rash or petechiae. MUSCULOSKELETAL: Shows no joint swelling or stiffness. GENITOURINARY: Shows no Martinez or CVA tenderness. NEUROLOGIC: Motor intact. Cranial nerves intact. LABORATORY DATA: Hemoglobin 11.2. Potassium 4.6. ASSESSMENT AND PLAN: 1. Stage 4 chronic kidney disease, stable. 2. Hypertension, stable. 3. Anemia, stable. No indication for dialysis. 4. Hyperkalemia, stable. 5. Metabolic acidosis. Continue sodium bicarbonate by mouth. Job ID: [id number]
[2020-03-14] MEDS ORDERED: Clopidogrel Bisulfate 300 MG TAB PO SCH (14:15)
--- NOTE | 2020-03-14 14:33 | CON ---
DATE OF CONSULTATION: HISTORY OF PRESENT ILLNESS: The patient is a 59-year-old gentleman with a history of cardiomyopathy, who presented with increasing dyspnea and lightheadedness. The patient was seen in 2014. He underwent a cardiac evaluation. The patient was found to have a moderate decrease in left ventricular systolic function, estimated ejection fraction of 35% to 40%. The LAD was free of significant disease. The left circumflex artery was free of significant disease. The right coronary artery had a 20% stenosis. The patient was placed on medical therapy. He was seen in March of 2017 with congestive heart failure. At that time, the patient was restarted on medical therapy. He was seen again in March 2018 with shortness of breath. He underwent a followup echocardiogram, which revealed him to have left ventricular ejection fraction of 35% to 40%. The patient was in his usual state of health when he became lightheaded and dizzy. The patient became short of breath. He denied having any chest discomfort. The patient states he has been compliant with his medications. The patient denied having any fevers or chills. PAST MEDICAL HISTORY: 1. Cardiomyopathy. 2. Mild coronary artery disease. 3. Chronic renal failure. 4. Hypertension. 5. Diabetes mellitus. PAST SURGICAL HISTORY: Right shoulder surgery. SOCIAL HISTORY: Long history of tobacco abuse. FAMILY HISTORY: There was no strong family history of coronary artery disease. ALLERGIES: NO KNOWN DRUG ALLERGIES. MEDICATIONS ON ADMISSION: 1. Lipitor 40 daily. 2. Aspirin 81 daily. 3. Lasix 40 daily. 4. Coreg 25 b.i.d. 5. Isordil 20 b.i.d. 6. Glyburide 5 b.i.d. 7. Hydralazine 37.5 t.i.d. REVIEW OF SYSTEMS: Ten-point system otherwise unremarkable. PHYSICAL EXAMINATION: GENERAL: Obese gentleman, in no acute distress. VITAL SIGNS: Blood pressure 167/77. NECK: Showed no jugular venous distention. LUNGS: Clear to auscultation. HEART: Regular rate and rhythm. Normal S1, S2. ABDOMEN: Distended. EXTREMITIES: Showed mild edema. VASCULAR: Radial pulses 2+. LABORATORY DATA: Sodium 136, potassium 4.6, chloride 107, bicarbonate 18, BUN 60, creatinine 4.1, glucose 332. His A1c was 13. His white blood cell count 6.2, hemoglobin 11.2, hematocrit 33.2, and his platelets 169. EKG marked sinus bradycardia with ST-T wave abnormality suggestive of ischemia. IMPRESSION: 1. Dyspnea, possible anginal equivalent. 2. Dizziness, may be secondary to bradycardia. 3. Mild coronary artery disease. 4. History of cardiomyopathy. 5. Acute on chronic renal failure. 6. Diabetes mellitus, poorly controlled. 7. Morbid obesity. This unfortunate gentleman presented with acute onset of dyspnea and dizziness.This certainly could be suggestive of unstable angina. He is a high risk patient and we will start him on Plavix. With his chronic renal insufficiency, I discussed the option of undergoing a repeat invasive evaluation including risk of renal failure. The patient declines, I will treat the patient with Plavix. I would recommend decreasing the dose of his Coreg since he has marked bradycardia. It is imperative this patient have better control of his diabetes. We will proceed with stress testing to evaluate the extent of his ischemia. Job ID: [id number] MTDD
[2020-03-14] MEDS ORDERED: Dextrose 5% in Water 1,000 ML IV PRN (16:51)
[2020-03-14] MEDS ORDERED: Dextrose 50% Abboject 50 ML SYRINGE SLOW IVP PRN (16:51)
--- NOTE | 2020-03-14 16:53 | PDOC.HOSPP ---
- Subjective Encounter Date: 03/14/20 Encounter Time: 10:00 Subjective: pt seen on f/u for chest pain and renal failure. refers feeling well. denies any currently chest pain palpitation or diaphoresis - Objective Vital Signs & Weight: Vital Signs (12 hours) Temp Pulse Resp BP Pulse Ox 03/14/20 15:47 51 L 03/14/20 12:25 98.3 F 51 L 16 167/77 H 98 03/14/20 08:09 51 L 03/14/20 08:00 97.5 F L 50 L 16 170/91 H 100 Weight Weight 273 lb 8 oz I&O: 03/13/20 03/14/20 03/15/20 06:59 06:59 06:59 Intake Total 240 320 Output Total 1400 Balance 240 -1080 Result Diagrams: 03/14/20 04:06 03/14/20 04:06 Additional Labs: Accuchecks 03/14/20 03/14/20 03/14/20 16:40 10:56 05:59 POC Glucose 399 H 269 H 311 H 03/13/20 03/13/20 20:44 17:09 POC Glucose 286 H 312 H Hospitalist ROS - Review of Systems All other systems reviewed; all pertinent +/- noted in HPI/Subj - Medication Medications: Active Medications Generic Name Dose Route Start Last Admin Trade Name Freq PRN Reason Stop Dose Admin Aspirin 81 mg 03/13/20 09:00 03/14/20 08:09 Aspirin Chewable 81 Mg Tab PO 81 mg DAILY MIRIAM Administration Atorvastatin Calcium 40 mg 03/13/20 21:00 03/13/20 21:41 Atorvastatin Calcium 40 Mg Tab PO 40 mg HS MIRIAM Administration Heparin Sodium (Porcine) 5,000 units 03/13/20 09:00 03/14/20 15:48 Heparin 5,000 Units/Ml Vial SC 5,000 units TID MIRIAM Administration Hydralazine HCl 37.5 mg 03/13/20 09:00 03/14/20 15:47 Hydralazine 25 Mg Tab PO 37.5 mg TID MIRIAM Administration Insulin Human Lispro 0 units 03/13/20 09:09 03/14/20 12:32 Humalog 300 Units/3 Ml Vial SC 9 unit .AGGRESSIVE SLIDING PRN Administration Aggressive [employer] Scale Isosorbide Dinitrate 20 mg 03/13/20 09:00 03/14/20 15:48 Isosorbide Dinitrate 20 Mg Tab PO 20 mg TID MIRIAM Administration - Exam General Appearance: NAD, awake alert Eye: PERRL, anicteric sclera ENT: normocephalic atraumatic, no oropharyngeal lesions Neck: supple, symmetric, no JVD, no thyromegaly Heart: RRR, no murmur, no gallops Respiratory: CTAB, no wheezes, no rales, no ronchi Gastrointestinal: soft, non-tender, non-distended Extremities: no cyanosis, no clubbing, no edema Skin: normal turgor, no lesions, no rashes Neurological: cranial nerve grossly intact, normal sensation to touch Musculoskeletal: normal tone, normal strength, no muscle wasting Psychiatric: normal affect, normal behavior, A&O x 3 Hosp A/P (1) Chest pain Code(s): R07.9 - CHEST PAIN, UNSPECIFIED Status: Acute (2) Acute on chronic kidney failure Code(s): N17.9 - ACUTE KIDNEY FAILURE, UNSPECIFIED; N18.9 - CHRONIC KIDNEY DISEASE, UNSPECIFIED Status: Acute (3) Diabetes 1.5, managed as type 2 Code(s): E13.9 - OTHER SPECIFIED DIABETES MELLITUS WITHOUT COMPLICATIONS Status: Chronic (4) Hyperlipidemia Code(s): E78.5 - HYPERLIPIDEMIA, UNSPECIFIED Status: Chronic Qualifiers: Hyperlipidemia type: unspecified Qualified Code(s): E78.5 - Hyperlipidemia, unspecified (5) Hypertension Code(s): I10 - ESSENTIAL (PRIMARY) HYPERTENSION Status: Chronic - Plan chest pain - likely unstable angina as described by patient - cardiology consulted - stress test in AM, patient refused LHC - continue CAD protective medication with asa statin, plavix added by cardiology - pulse in the 50s, unable to start beta baltazar acute on chronic renal failure - nephrology consulted - on bicarb drip, improving - continue to monitor bmp and u/o uncontrolled DM - on ss+acc - will add long acting insulin
[2020-03-14] MEDS ORDERED: FLU VACC QS2020-21(6MOS UP)/PF 60 MCG/0.5 ML SYRINGE IM ONE (17:15)
[2020-03-14] MEDS ORDERED: Tamsulosin HCl 0.4 MG CAP PO SCH (21:00)
[2020-03-14] MEDS: Insulin Glargine 20 UNITS in Pre-Filled Syringe 1 EACH SC SCH (21:02)
[2020-03-14] MEDS: Atorvastatin Calcium 40 MG TAB PO SCH (21:03)
--- NOTE | 2020-03-15 11:54 | PRG ---
DATE OF SERVICE: 03/15/2020 SUBJECTIVE: A 59-year-old gentleman, being seen for acute kidney injury. The patient denied any nausea, vomiting, or chest pain. OBJECTIVE: GENERAL: The patient is awake, alert. VITAL SIGNS: Afebrile, pulse 75, breathing at 16, blood pressure 177/82. HEENT: Head normocephalic and atraumatic. Eyes intact, no ulcers. Nose intact, no ulcers. Ears intact, no ulcers. NECK: Supple. No JVD. CHEST: Symmetrical and clear. CARDIOVASCULAR: Shows S1 and S2, no rub, no murmur. GASTROINTESTINAL: Abdomen is soft, bowel sounds positive. EXTREMITIES: Show no edema or ulcers. SKIN: Shows no rash or petechiae. MUSCULOSKELETAL: Shows no joint swelling or stiffness. GENITOURINARY: Shows no Martinez or CVA tenderness. NEUROLOGIC: Motor intact. Cranial nerves intact. LABORATORY DATA: Hemoglobin 11.2. ASSESSMENT AND PLAN: 1. Chronic kidney disease, stage 4, stable. 2. Hypertension, stable. 3. Anemia, stable. 4. , stable. No indication for dialysis today. Job ID: [id number]
--- NOTE | 2020-03-15 11:59 | PDOC.HOSPP ---
- Objective Vital Signs & Weight: Vital Signs (12 hours) Temp Pulse Resp BP Pulse Ox 03/15/20 07:55 98.3 F 50 L 16 177/82 H 100 03/15/20 03:34 97.7 F 50 L 20 176/83 H 97 03/15/20 00:00 46 L 185/88 H Weight Weight 271 lb 8 oz I&O: 03/14/20 03/15/20 03/16/20 06:59 06:59 06:59 Intake Total 240 2140 Output Total 5000 Balance 240 -2860 Result Diagrams: 03/14/20 04:06 03/14/20 04:06 Additional Labs: Accuchecks 03/15/20 03/15/20 03/14/20 08:02 05:01 19:58 POC Glucose 217 H 208 H 299 H 03/14/20 16:40 POC Glucose 399 H Hospitalist ROS - Medication Medications: Active Medications Generic Name Dose Route Start Last Admin Trade Name Freq PRN Reason Stop Dose Admin Aspirin 81 mg 03/13/20 09:00 03/14/20 08:09 Aspirin Chewable 81 Mg Tab PO 81 mg DAILY MIRIAM Administration Atorvastatin Calcium 40 mg 03/13/20 21:00 03/14/20 21:03 Atorvastatin Calcium 40 Mg Tab PO 40 mg HS MIRIAM Administration Heparin Sodium (Porcine) 5,000 units 03/13/20 09:00 03/14/20 21:03 Heparin 5,000 Units/Ml Vial SC 5,000 units TID MIRIAM Administration Insulin Glargine 20 units/ 0.2 mls @ 0 mls/hr 03/14/20 21:00 03/14/20 21:02 Miscellaneous Medication SC 0.2 mls HS MIRIAM Administration Insulin Human Lispro 0 units 03/13/20 09:09 03/14/20 17:58 Humalog 300 Units/3 Ml Vial SC 13 unit .AGGRESSIVE SLIDING PRN Administration Aggressive Correctional Scale Isosorbide Dinitrate 20 mg 03/13/20 09:00 03/14/20 21:03 Isosorbide Dinitrate 20 Mg Tab PO 20 mg TID MIRIAM Administration Hosp A/P (1) Chest pain Code(s): R07.9 - CHEST PAIN, UNSPECIFIED Status: Acute (2) Acute on chronic kidney failure Code(s): N17.9 - ACUTE KIDNEY FAILURE, UNSPECIFIED; N18.9 - CHRONIC KIDNEY DISEASE, UNSPECIFIED Status: Acute (3) Diabetes 1.5, managed as type 2 Code(s): E13.9 - OTHER SPECIFIED DIABETES MELLITUS WITHOUT COMPLICATIONS Status: Chronic (4) Hyperlipidemia Code(s): E78.5 - HYPERLIPIDEMIA, UNSPECIFIED Status: Chronic Qualifiers: Hyperlipidemia type: unspecified Qualified Code(s): E78.5 - Hyperlipidemia, unspecified (5) Hypertension Code(s): I10 - ESSENTIAL (PRIMARY) HYPERTENSION Status: Chronic - Plan chest pain - likely unstable angina as described by patient - cardiology consulted - stress test in AM, patient refused LHC - continue CAD protective medication with asa statin, plavix added by cardiology - pulse in the 50s, unable to start beta baltazar acute on chronic renal failure - nephrology consulted - on bicarb drip, improving - continue to monitor bmp and u/o uncontrolled DM - on ss+acc - will add long acting insulin
[2020-03-15] MEDS ORDERED: Regadenoson 0.4 MG/5 ML SYRINGE ONE (12:01)
--- NOTE | 2020-03-15 14:11 | PDOC.HOSPP ---
- Subjective Encounter Date: 03/15/20 Encounter Time: 11:00 Subjective: patient seen on f/u for chest pain, refers feels fine. denies any sob palpitations or diaphoresis, refers occasional chest pains - Objective Vital Signs & Weight: Vital Signs (12 hours) Temp Pulse Resp BP Pulse Ox 03/15/20 07:55 98.3 F 50 L 16 177/82 H 100 03/15/20 03:34 97.7 F 50 L 20 176/83 H 97 Weight Weight 271 lb 8 oz I&O: 03/14/20 03/15/20 03/16/20 06:59 06:59 06:59 Intake Total 240 2140 Output Total 5000 Balance 240 -2860 Result Diagrams: 03/14/20 04:06 03/14/20 04:06 Additional Labs: Accuchecks 03/15/20 03/15/20 03/14/20 08:02 05:01 19:58 POC Glucose 217 H 208 H 299 H 03/14/20 16:40 POC Glucose 399 H Hospitalist ROS - Review of Systems All other systems reviewed; all pertinent +/- noted in HPI/Subj - Medication Medications: Active Medications Generic Name Dose Route Start Last Admin Trade Name Freq PRN Reason Stop Dose Admin Aspirin 81 mg 03/13/20 09:00 03/14/20 08:09 Aspirin Chewable 81 Mg Tab PO 81 mg DAILY MIRIAM Administration Atorvastatin Calcium 40 mg 03/13/20 21:00 03/14/20 21:03 Atorvastatin Calcium 40 Mg Tab PO 40 mg HS MIRIAM Administration Heparin Sodium (Porcine) 5,000 units 03/13/20 09:00 03/14/20 21:03 Heparin 5,000 Units/Ml Vial SC 5,000 units TID MIRIAM Administration Insulin Glargine 20 units/ 0.2 mls @ 0 mls/hr 03/14/20 21:00 03/14/20 21:02 Miscellaneous Medication SC 0.2 mls HS MIRIAM Administration Insulin Human Lispro 0 units 03/13/20 09:09 03/14/20 17:58 Humalog 300 Units/3 Ml Vial SC 13 unit .AGGRESSIVE SLIDING PRN Administration Aggressive [employer] Scale Isosorbide Dinitrate 20 mg 03/13/20 09:00 03/14/20 21:03 Isosorbide Dinitrate 20 Mg Tab PO 20 mg TID MIRIAM Administration - Exam General Appearance: NAD, awake alert Eye: PERRL, anicteric sclera ENT: normocephalic atraumatic, no oropharyngeal lesions Neck: supple, symmetric, no JVD, no thyromegaly Heart: RRR, no murmur, no gallops Respiratory: CTAB, no wheezes, no rales Gastrointestinal: soft, non-tender, non-distended Extremities: no cyanosis, no clubbing, no edema Skin: normal turgor, no lesions, no rashes Neurological: cranial nerve grossly intact, normal sensation to touch, no weakness Musculoskeletal: normal tone, normal strength, no muscle wasting Psychiatric: normal affect, normal behavior, A&O x 3 Hosp A/P (1) Chest pain Code(s): R07.9 - CHEST PAIN, UNSPECIFIED Status: Acute (2) Acute on chronic kidney failure Code(s): N17.9 - ACUTE KIDNEY FAILURE, UNSPECIFIED; N18.9 - CHRONIC KIDNEY DISEASE, UNSPECIFIED Status: Acute (3) Diabetes 1.5, managed as type 2 Code(s): E13.9 - OTHER SPECIFIED DIABETES MELLITUS WITHOUT COMPLICATIONS Status: Chronic (4) Hyperlipidemia Code(s): E78.5 - HYPERLIPIDEMIA, UNSPECIFIED Status: Chronic Qualifiers: Hyperlipidemia type: unspecified Qualified Code(s): E78.5 - Hyperlipidemia, unspecified (5) Hypertension Code(s): I10 - ESSENTIAL (PRIMARY) HYPERTENSION Status: Chronic - Plan chest pain - likely unstable angina as described by patient - cardiology consulted - cardio recommended [facility], but due to concerns for kidney function, pt refuse and is schedule for stress test today. still pending ventura of my evaluation - continue CAD protective medication with asa statin, plavix added by cardiology - pulse in the 50s, unable to start beta baltazar acute on chronic renal failure - nephrology consulted - was on bicarb drip - continue to monitor bmp and u/o uncontrolled DM - on ss+acc - long acting insulin
[2020-03-15] MEDS: Heparin 5,000 UNITS/ML VIAL SC SCH ×3 (14:19→21:48)
[2020-03-15] MEDS: hydrALAZINE 25 MG TAB PO SCH ×3 (14:19→21:49)
[2020-03-15] MEDS: Isosorbide Dinitrate 20 MG TAB PO SCH ×3 (14:19→21:48)
[2020-03-15] MEDS: Aspirin Chewable 81 MG TAB PO SCH (14:20)
[2020-03-15] MEDS: Clopidogrel Bisulfate 75 MG TAB PO SCH (14:20)
[2020-03-15] MEDS: Tamsulosin HCl 0.4 MG CAP PO SCH ×2 (14:25→21:48)
--- NOTE | 2020-03-15 14:26 | NM ---
Nuclear medicine Cardiac myocardial perfusion SPECT Ejection fraction study Wall motion cine: DATE:03/15/2020 9:25 AM INDICATION: History of chest pain coronary artery disease hypertension and smoking TECHNIQUE: Number of days:2 Rest Study: Technetium 99m-sestamibi (Cardiolite) dose:9.80 mCi Stress study: Technetium 99m-sestamibi (Cardiolite) dose:27.5 mCi FINDINGS: Cardiac (myocardial perfusion) SPECT There is a predominantly large region of moderate to prominent reduced radiotracer accumulation invol ving the basal to apical inferior wall. There is also a region of diminished radiotracer accumulation involving the distal anterior wall and apex of the left ventricle that appears improved on the rest images. There is diffuse dilatation of the left ventricle on both the rest and stress images. Ejection fraction study Left ventricular EF = 32% Wall motion cine There is diffuse hypokinesis with areas of dyskinesis involving the septum and apex. IMPRESSION: Abnormal myocardial perfusion evaluation. 1. Area of large reduced radiotracer accumulation involving the basal to apical inferior wall that is predominantly fixed may reflect sequela of prior infarction or prominent soft tissue attenuation. There is diffuse left ventricular dilatation with diminished estimated LVEF and diffuse hypokinesis. 2. Mild-sized region of moderately reduced activity involving the distal left ventricular anterior wa ll and apex that mildly improves with rest may reflect an area of reversible myocardial ischemia.
[2020-03-15] MEDS: HumaLOG 300 UNITS/3 ML VIAL SC PRN ×2 (14:37→17:53)
[2020-03-15] MEDS: Insulin Glargine 20 UNITS in Pre-Filled Syringe 1 EACH SC SCH (21:47)
[2020-03-15] MEDS: Atorvastatin Calcium 40 MG TAB PO SCH (21:49)
[2020-03-16 05:13] LABS: Anion Gap 17 mmol/L (10-20); BUN (Urea Nitrogen) 46 mg/dL (8.4-25.7); Calc. Creatinine Clearance 43 mL/min (70-130); Calcium 8.4 mg/dL (7.8-10.44); Carbon Dioxide 15 mmol/L (22-29); Chloride 109 mmol/L (98-107); Glucose 170 mg/dL (70-105); Potassium 4.5 mmol/L (3.5-5.1); Sodium 136 mmol/L (136-145)
[2020-03-16 05:14] LABS: Mean Corpuscular HGB CONC 32.1 g/dL (32.0-36.0); Mean Corpuscular Hemoglobin 28.8 pg (27.0-31.0); Mean Corpuscular Volume 89.7 fL (78.0-98.0); Mean Platelet Volume 9.4 fL (7.4-10.4); Platelet Count 191 thou/uL (130-400); RBC Distribution Width 13.7 % (11.5-14.5); Red Blood Cell (RBC) Count 3.84 mill/uL (4.70-6.10); White Blood Cell (WBC) Count 6.2 thou/uL (4.8-10.8)
[2020-03-16 05:15] LABS: Eosinophils 1 % (0-10); Hypochromia SLIGHT = 6-15 cells (100X) (0-5/hpf); Lymphocytes 40 % (21-51); MDiff Complete? YES; Metamyelocyte 1 % (0-0); Monocytes 2 % (0-10); Neutrophil 53 % (42-75); Platelet Morphology Comment Appears Adequate; Reactive Lymphocytes 3 % (0-10)
[2020-03-16] MEDS: Isosorbide Dinitrate 20 MG TAB PO SCH ×3 (08:22→21:04)
[2020-03-16] MEDS: Clopidogrel Bisulfate 75 MG TAB PO SCH (08:23)
[2020-03-16] MEDS: Heparin 5,000 UNITS/ML VIAL SC SCH (08:23)
[2020-03-16] MEDS: Aspirin Chewable 81 MG TAB PO SCH (08:23)
[2020-03-16] MEDS: hydrALAZINE 25 MG TAB PO SCH ×3 (08:23→21:03)
[2020-03-16] MEDS: Tamsulosin HCl 0.4 MG CAP PO SCH ×2 (08:23→21:04)
--- NOTE | 2020-03-16 08:36 | PDOC.HOSPP ---
- Subjective Encounter Date: 03/16/20 Encounter Time: 08:36 Subjective: patient sitting in edge of bed, no chest pain or shortness of breath, gets MOLINA walking around room, reports cardiology came by and recommended heart cath sometime this admission - Objective Vital Signs & Weight: Vital Signs (12 hours) Temp Pulse Resp BP Pulse Ox 03/16/20 08:23 50 L 03/16/20 03:40 98.3 F 50 L 20 165/80 H 96 03/16/20 00:33 98.2 F 50 L 16 179/81 H 98 03/15/20 21:41 97.9 F 47 L 18 178/83 H 98 Weight Weight 273 lb I&O: 03/15/20 03/16/20 03/17/20 06:59 06:59 06:59 Intake Total 2140 1980 Output Total 2040 2975 Balance -2483 -005 Result Diagrams: 03/16/20 04:03 03/16/20 04:03 Additional Labs: Accuchecks 03/16/20 03/16/20 03/15/20 08:00 04:21 23:45 POC Glucose 146 H 170 H 189 H 03/15/20 03/15/20 03/15/20 20:37 16:03 14:35 POC Glucose 234 H 334 H 337 H Hospitalist ROS - Medication Medications: Active Medications Generic Name Dose Route Start Last Admin Trade Name Freq PRN Reason Stop Dose Admin Aspirin 81 mg 03/13/20 09:00 03/16/20 08:23 Aspirin Chewable 81 Mg Tab PO 81 mg DAILY MIRIAM Administration Atorvastatin Calcium 40 mg 03/13/20 21:00 03/15/20 21:49 Atorvastatin Calcium 40 Mg Tab PO 40 mg HS MIRIAM Administration Clopidogrel Bisulfate 75 mg 03/15/20 09:00 03/16/20 08:23 Clopidogrel Bisulfate 75 Mg Tab PO 75 mg DAILY MIRIAM Administration Heparin Sodium (Porcine) 5,000 units 03/13/20 09:00 03/16/20 08:23 Heparin 5,000 Units/Ml Vial SC 5,000 units TID MIRIAM Administration Hydralazine HCl 50 mg 03/15/20 09:00 03/16/20 08:23 Hydralazine 25 Mg Tab PO 50 mg TID MIRIAM Administration Insulin Glargine 20 units/ 0.2 mls @ 0 mls/hr 03/14/20 21:00 03/15/20 21:47 Miscellaneous Medication SC 0.2 mls HS MIRIAM Administration Insulin Human Lispro 0 units 03/13/20 09:09 03/15/20 17:53 Humalog 300 Units/3 Ml Vial SC 11 unit .AGGRESSIVE SLIDING PRN Administration Aggressive [employer]al Scale Isosorbide Dinitrate 20 mg 03/13/20 09:00 03/16/20 08:22 Isosorbide Dinitrate 20 Mg Tab PO 20 mg TID MIRIAM Administration Tamsulosin HCl 0.4 mg 03/15/20 09:00 03/16/20 08:23 Tamsulosin Hcl 0.4 Mg Cap PO 0.4 mg BID MIRIAM Administration - Exam General Appearance: NAD, awake alert Eye: PERRL, anicteric sclera ENT: normocephalic atraumatic, no oropharyngeal lesions, moist mucosa Neck: supple, symmetric, no JVD, no thyromegaly, no lymphadenopathy, no carotid bruit Heart: RRR, no murmur, no gallops, no rubs, normal peripheral pulses Respiratory: CTAB, no wheezes, no rales, no ronchi, normal chest expansion, no tachypnea, normal percussion Gastrointestinal: soft, non-tender, non-distended, normal bowel sounds, no palpable masses, no hepatomegaly, no splenomegaly, no bruit Extremities: no cyanosis, no clubbing, no edema Skin: normal turgor, no lesions, no rashes Neurological: cranial nerve grossly intact, normal sensation to touch, no weakness, no focal deficits, no new deficit Musculoskeletal: normal tone, normal strength, no muscle wasting Psychiatric: normal affect, normal behavior, A&O x 3 Hosp A/P - Plan chest pain - likely unstable angina as described by patient - cardiology consulted - cardio recommended [facility], but due to concerns for kidney function, pt refuse and had stress test, which is positive, await cardiology recommendations. renal function somewhat improved but still only GFr in 20s. would benefit from heart cath and possible PCI i would suspect - continue CAD protective medication with asa statin, plavix added by cardiology - pulse in the 50s, unable to start beta baltazar acute on chronic renal failure - nephrology consulted - was on bicarb drip - continue to monitor bmp and u/o uncontrolled DM - on ss+acc - long acting insulin
--- NOTE | 2020-03-16 11:04 | PRG ---
DATE OF SERVICE: 03/16/2020 SUBJECTIVE: A 59-year-old gentleman, being seen for acute kidney injury. The patient denied any nausea, vomiting, or chest pain. PHYSICAL EXAMINATION: GENERAL: The patient is awake and alert. VITAL SIGNS: Afebrile, pulse 50, breathing at 16, blood pressure 165/80. HEENT: Head normocephalic and atraumatic. Eyes intact, no ulcers. Nose intact, no ulcers. Ears intact, no ulcers. NECK: Supple. No JVD. CHEST: Symmetrical and clear. CARDIOVASCULAR: Shows S1 and S2, no rub, no murmur. GASTROINTESTINAL: Abdomen is soft, bowel sounds positive. Extremities: Show no edema or ulcers. SKIN: Shows no rash or petechiae. MUSCULOSKELETAL: Shows no joint swelling or stiffness. GENITOURINARY: Shows no Martinez or CVA tenderness. NEUROLOGIC: Motor intact. Cranial nerves intact. LABORATORY DATA: Reviewed. ASSESSMENT AND PLAN: 1. Chronic kidney disease, stage 4, stable. 2. Hypertension, stable. 3. Anemia, stable. 4. Metabolic acidosis. I would recommend starting on sodium bicarbonate 975 t.i.d. Job ID: [id number]
[2020-03-16] MEDS: HumaLOG 300 UNITS/3 ML VIAL SC PRN ×2 (12:33→17:56)
[2020-03-16] MEDS: Sodium Bicarbonate Tab 325 MG TAB PO SCH ×2 (15:47→21:04)
--- NOTE | 2020-03-16 17:57 | CON ---
DATE OF CONSULTATION: 03/16/2020 REFERRING NIGHT NURSE: Chandana Quiroz MD REASON FOR CONSULTATION: Congestive heart failure. Evaluate for ICD. HISTORY OF PRESENT ILLNESS: Mr. Agarwal is a pleasant 59-year-old male with a history of chronic systolic heart failure dating back to 2014, nonischemic cardiomyopathy, mild coronary artery disease, chronic kidney disease, hypertension, and diabetes. He was admitted after a syncopal episode. He got up and was feeling lightheaded. He went to open his front door and he fell back, had a brief syncopal episode. Upon awakening, he was diaphoretic and dyspneic. He was brought to the emergency department and treated for congestive heart failure. Currently, he has no chest discomfort, dyspnea, or neurologic deficits. He has moderate daily exertional dyspnea improved with rest. Nuclear stress test on March 15, 2020, showed ejection fraction 32% with reversible distal anterior defect, which was mild in severity. His ejection fraction has been decreased by echocardiogram for several years. After discussion with Dr. Quiroz, it was determined to manage his coronary artery disease medically as he had a catheterization done in 2014, which showed mild noncritical coronary artery disease. PAST MEDICAL HISTORY: 1. Chronic systolic heart failure due to nonischemic cardiomyopathy. 2. Coronary artery disease. 3. Chronic kidney disease. 4. Diabetes mellitus. 5. Hypertension. PAST SURGICAL HISTORY: Right shoulder surgery. FAMILY HISTORY: Negative for coronary artery disease. ALLERGIES: NO KNOWN DRUG ALLERGIES. OUTPATIENT MEDICATIONS: 1. Lipitor 40 mg daily. 2. Aspirin 81 mg daily. 3. Lasix 40 mg daily. 4. Coreg 25 mg b.i.d. 5. Isordil 20 mg b.i.d. 6. Glyburide 5 mg b.i.d. 7. Hydralazine 37.5 mg t.i.d. REVIEW OF SYSTEMS: No melena, bright red blood per rectum, hematemesis, orthopnea, edema, stroke, seizures, chest discomfort. All others negative. PHYSICAL EXAMINATION: GENERAL: Alert and oriented x4. No apparent distress. VITAL SIGNS: Afebrile. Blood pressure 165/80, pulse 50, respiratory rate 12, oxygen saturation 96% on room air. LABORATORY DATA: WBC 6.2, hemoglobin 11.0, platelets 191. Sodium 136, potassium 4.5, BUN 46, creatinine 3.2, glucose 170. IMPRESSION: 1. Chronic systolic heart failure due to nonischemic cardiomyopathy. He has [place] Heart Association class III symptoms of heart failure. He has not had revascularization or myocardial infarction. He is on guideline directed medical therapy. Although, his coronary artery disease is due to his severe kidney disease, it was decided to manage his coronary artery disease conservatively. 2. Diabetes mellitus. 3. Hypertension. 4. Coronary artery disease. 5. Chronic kidney disease. 6. Syncope PLAN: We have discussed risks, benefits, and alternatives of dual-chamber ICD insertion including but not limited to myocardial infarction, stroke, , vascular damage, renal failure, allergic reaction, arm swelling, hematoma, need for device revision, infection with need for device removal. He was agreeable to proceed. We will plan to do this tomorrow. He has been on Plavix for 2 days, which we will discontinue. Job ID: [id number] [facility]
[2020-03-16] MEDS: Atorvastatin Calcium 40 MG TAB PO SCH (21:04)
[2020-03-16] MEDS: Insulin Glargine 20 UNITS in Pre-Filled Syringe 1 EACH SC SCH (21:07)
[2020-03-17] MEDS: Isosorbide Dinitrate 20 MG TAB PO SCH ×3 (08:18→20:27)
[2020-03-17] MEDS: Tamsulosin HCl 0.4 MG CAP PO SCH (08:18)
[2020-03-17] MEDS: Sodium Bicarbonate Tab 325 MG TAB PO SCH ×3 (08:18→22:40)
[2020-03-17] MEDS: hydrALAZINE 25 MG TAB PO SCH ×3 (08:18→20:24)
[2020-03-17] MEDS ORDERED: Vancomycin 1.5 GRAM/300 ML BAG 1.5 GM in Premix Bag 1 BAG IVPB SCH (09:00)
[2020-03-17] MEDS ORDERED: Gentamicin 80 MG/2 ML VIAL ONE (09:23)
[2020-03-17] MEDS ORDERED: CEFAZOLIN 1 GM VIAL ONE (09:23)
[2020-03-17 09:56] LABS: #Basophils 0.1 thou/uL (0.0-0.2); #Eosinphils 0.1 thou/uL (0.0-0.7); #Lymphocytes 1.8 thou/uL (1.20-3.40); #Monocytes 0.4 thou/uL (0.11-0.59); #Neutrophils 2.7 thou/uL (1.40-6.50); %Basophils 1.4 % (0.0-1.0); %Eosinophils 2.1 % (0.0-10.0); %Monocytes 8.8 % (0.0-10.0); %Neutrophils 52.7 % (42.0-75.0); Hemoglobin 10.6 g/dL (14.0-18.0); Mean Corpuscular HGB CONC 33.1 g/dL (32.0-36.0); Mean Corpuscular Hemoglobin 29.5 pg (27.0-31.0); Mean Corpuscular Volume 89.4 fL (78.0-98.0); Mean Platelet Volume 9.1 fL (7.4-10.4); Platelet Count 172 thou/uL (130-400); RBC Distribution Width 13.6 % (11.5-14.5); Red Blood Cell (RBC) Count 3.59 mill/uL (4.70-6.10)
[2020-03-17 10:07] LABS: Anion Gap 13 mmol/L (10-20); BUN (Urea Nitrogen) 36 mg/dL (8.4-25.7); Calc. Creatinine Clearance 44 mL/min (70-130); Calcium 8.4 mg/dL (7.8-10.44); Carbon Dioxide 18 mmol/L (22-29); Chloride 111 mmol/L (98-107); Glucose 274 mg/dL (70-105); Magnesium 2.4 mg/dL (1.6-2.6); Potassium 4.3 mmol/L (3.5-5.1); Sodium 138 mmol/L (136-145)
[2020-03-17] MEDS ORDERED: Midazolam HCl 2 mg/2 ml Vial ONE (10:11)
[2020-03-17] MEDS ORDERED: Ketamine 50 MG/ML (10ML VIAL) ONE (10:12)
[2020-03-17] MEDS ORDERED: Propofol 1,000 MG/100 ML VIAL IV ONE (10:13)
[2020-03-17] MEDS ORDERED: Lidocaine 1% PF 5 ML VIAL ONE (10:35)
[2020-03-17] MEDS ORDERED: Ondansetron PF 4 MG/2 ML Vial ONE (10:35)
--- NOTE | 2020-03-17 12:53 | RAD ---
XR Chest 1 View Portable History: Cardiac device placement Comparison: Radiograph March 13, 2020 Findings: Heart size is enlarged. Mild pulmonary edema. AICD/pacer leads project over the right atriu m and right ventricle. No pneumothorax. No acute osseous abnormality. Impression: Uncomplicated cardiac device placement.
--- NOTE | 2020-03-17 14:05 | PDOC.HOSPP ---
- Subjective Encounter Date: 03/17/20 Encounter Time: 14:04 Subjective: s/p ICD placement, on bedrest, sleeping but rousable, no complaints, no wound issues. - Objective Vital Signs & Weight: Vital Signs (12 hours) Temp Pulse Resp BP Pulse Ox 03/17/20 13:10 97.6 F 50 L 16 171/83 H 99 03/17/20 07:35 97.9 F 54 L 16 152/70 H 98 03/17/20 04:00 98.8 F 57 L 16 145/65 H 95 Weight Weight 274 lb 3.2 oz I&O: 03/16/20 03/17/20 03/18/20 06:59 06:59 06:59 Intake Total 1980 2100 Output Total 297 2900 Balance -995 -800 Result Diagrams: 03/17/20 09:23 03/17/20 09:23 Additional Labs: Accuchecks 03/17/20 03/16/20 03/16/20 05:32 20:44 16:38 POC Glucose 260 H 399 H 254 H 03/14/20 23:51 POC Glucose 249 H Radiology Reviewed by me: Yes Hospitalist ROS - Medication Medications: Active Medications Generic Name Dose Route Start Last Admin Trade Name Freq PRN Reason Stop Dose Admin Aspirin 81 mg 03/13/20 09:00 03/16/20 08:23 Aspirin Chewable 81 Mg Tab PO 81 mg DAILY MIRIAM Administration Atorvastatin Calcium 40 mg 03/13/20 21:00 03/16/20 21:04 Atorvastatin Calcium 40 Mg Tab PO 40 mg HS MIRIAM Administration Hydralazine HCl 50 mg 03/15/20 09:00 03/17/20 08:18 Hydralazine 25 Mg Tab PO 50 mg TID MIRIAM Administration Insulin Glargine 20 units/ 0.2 mls @ 0 mls/hr 03/14/20 21:00 03/16/20 21:07 Miscellaneous Medication SC 0.2 mls HS MIRIAM Administration Insulin Human Lispro 0 units 03/13/20 09:09 03/16/20 17:56 Humalog 300 Units/3 Ml Vial SC 9 unit .AGGRESSIVE SLIDING PRN Administration Aggressive Correctional Scale Isosorbide Dinitrate 20 mg 03/13/20 09:00 03/17/20 08:18 Isosorbide Dinitrate 20 Mg Tab PO 20 mg TID MIRIAM Administration Sodium Bicarbonate 975 mg 03/16/20 15:00 03/17/20 08:18 Sodium Bicarbonate Tab 325 Mg Tab PO 975 mg TID IMRIAM Administration - Exam General Appearance: NAD, awake alert Eye: PERRL, anicteric sclera ENT: normocephalic atraumatic, no oropharyngeal lesions, moist mucosa Neck: supple, symmetric, no JVD, no thyromegaly, no lymphadenopathy, no carotid bruit Heart: RRR, no murmur, no gallops, no rubs, normal peripheral pulses Heart - other findings: chest wall surgical wound and dressing, c/d/i Respiratory: CTAB, no wheezes, no rales, no ronchi, normal chest expansion, no tachypnea, normal percussion Gastrointestinal: soft, non-tender, non-distended, normal bowel sounds, no pal pable masses, no hepatomegaly, no splenomegaly, no bruit Extremities: no cyanosis, no clubbing, no edema Skin: normal turgor, no lesions, no rashes Neurological: cranial nerve grossly intact, normal sensation to touch, no wea kness, no focal deficits, no new deficit Musculoskeletal: normal tone, normal strength, no muscle wasting Psychiatric: normal affect, normal behavior, A&O x 3 Hosp A/P - Plan chest pain unstable angina chronic systolic CHF - cardiology consulted - cardio recommended LHC, positive stress test, s/p ICD placement earlier today (03/17) no issues. in room sleeping on bedrest for several hours, frequent vitals being taken. - continue CAD protective medication with asa statin, plavix w/ cardiology guidance acute on chronic renal failure - nephrology consulted - was on bicarb drip - continue to monitor bmp and u/o uncontrolled DM - on ss+acc - long acting insulin
[2020-03-17] MEDS: Aspirin Chewable 81 MG TAB PO SCH (15:34)
[2020-03-17] MEDS ORDERED: Morphine 2 MG/ML VIAL SLOW IVP PRN (16:28)
--- NOTE | 2020-03-17 16:57 | PDOC.BPN ---
- Brief Progress Note Encounter Date: 03/17/20 Encounter Time: 16:57 Subjective: Patient is seen in the room. He had ICD placement today. He is not complaining of pain Review of systems Gen.: No fever, no chills All the 14 systems reviewed except for the ones mentioned above are negative Physical examination Vital Signs (24 hours) Temp Pulse Resp BP BP Pulse Ox 03/17/20 20:24 17 L 134/60 03/17/20 15:45 97.9 F 16 L 16 181/87 H 98 03/17/20 13:10 97.6 F 50 L 16 171/83 H 99 03/17/20 07:35 97.9 F 54 L 16 152/70 H 98 03/17/20 04:00 98.8 F 57 L 16 145/65 H 95 03/16/20 23:35 99 F 56 L 16 161/76 H 97 Intake & Output - 24 hours 03/17/20 03/18/20 06:59 06:59 Intake Total 2100 350 Output Total 2900 1350 Balance -800 -1000 Weight 274 lb 3.2 oz Intake: Oral 2100 350 Output: Urine 2900 1350 Other: Voiding Method Urinal Urinal # Bowel Movements 0 Constitutional: comfortable, not in pain HEENT: Mucous membranes moist, no icterus Neck: Trachea midline, no lymphadenopathy; left upper chest surgical scar noted Heart: Regular rate and rhythm; no murmurs Lungs: Air entry equal bilateral; no wheezes Abdomen: Soft; nontender; no guarding/tenderness/rebound Extremities: No calf tenderness; no ulcers, no bruises Neurological: Patient is awake, following commands Skin: No rash, no ulcers Psychological: Not agitated Labs and Imaging reviewed Laboratory Results - last 24 hr 03/14/20 03/16/20 03/17/20 23:51 20:44 05:32 WBC RBC Hgb Hct MCV MCH MCHC RDW Plt Count MPV Neutrophils % Lymphocytes % Monocytes % Eosinophils % Basophils % Neutrophils # Lymphocytes # Monocytes # Eosinophils # Basophils # Sodium Potassium Chloride Carbon Dioxide Anion Gap BUN Creatinine Estimated GFR (MDRD) Glucose POC Glucose 249 H 399 H 260 H Calcium Magnesium 03/17/20 03/17/20 03/17/20 09:23 09:23 14:14 WBC 5.0 RBC 3.59 L Hgb 10.6 L Hct 32.1 L MCV 89.4 MCH 29.5 MCHC 33.1 RDW 13.6 Plt Count 172 MPV 9.1 Neutrophils % 52.7 Lymphocytes % 35.0 Monocytes % 8.8 Eosinophils % 2.1 Basophils % 1.4 H Neutrophils # 2.7 Lymphocytes # 1.8 Monocytes # 0.4 Eosinophils # 0.1 Basophils # 0.1 Sodium 138 Potassium 4.3 Chloride 111 H Carbon Dioxide 18 L Anion Gap 13 BUN 36 H Creatinine 3.15 H Estimated GFR (MDRD) 25 Glucose 274 H POC Glucose 229 H Calcium 8.4 Magnesium 2.4 03/17/20 16:35 WBC RBC Hgb Hct MCV MCH MCHC RDW Plt Count MPV Neutrophils % Lymphocytes % Monocytes % Eosinophils % Basophils % Neutrophils # Lymphocytes # Monocytes # Eosinophils # Basophils # Sodium Potassium Chloride Carbon Dioxide Anion Gap BUN Creatinine Estimated GFR (MDRD) Glucose POC Glucose 220 H Calcium Magnesium Active Medications Generic Name Dose Route Start Last Admin Trade Name Freq PRN Reason Stop Dose Admin Acetaminophen 650 mg 03/13/20 08:54 Acetaminophen 325 Mg Tab PO Q4H PRN Headache/Fever/Mild Pain (1-3) Hydrocodone Bitart/Acetaminophen 1 tab 03/17/20 16:28 03/17/20 17:37 Hydrocodone/Acetaminophen 5/325 Mg Tablet PO 1 tab Q4H PRN Administration Moderate Pain (4-6) Albuterol/Ipratropium 3 ml 03/13/20 09:24 Ipratropium/Albuterol Sulfate 3 Ml Neb NEB [id number] PRN SOB &/or Wheezing Aspirin 81 mg 03/13/20 09:00 03/17/20 15:34 Aspirin Chewable 81 Mg Tab PO Not Given DAILY MIRIAM Atorvastatin Calcium 40 mg 03/13/20 21:00 03/17/20 20:27 Atorvastatin Calcium 40 Mg Tab PO 40 mg HS MIRIAM Administration Carvedilol 12.5 mg 03/17/20 17:00 03/17/20 17:37 Carvedilol 6.25 Mg Tab PO 12.5 mg BID-WM MIRIAM Administration Dextrose/Water 25 gm 03/14/20 16:51 Dextrose 50% Abboject 50 Ml Syringe SLOW IVP PRN PRN Hypoglycemia Glucagon 1 mg 03/14/20 16:51 Glucagon 1 Mg/Ml Vial IM PRN PRN Hypoglycemia Hydralazine HCl 50 mg 03/15/20 09:00 03/17/20 20:24 Hydralazine 25 Mg Tab PO 50 mg TID MIRIAM Administration Dextrose/Water 1,000 mls @ 0 mls/hr 03/14/20 16:51 D5w IV .Q0M PRN Hypoglycemia As Directed Insulin Glargine 20 units/ 0.2 mls @ 0 mls/hr 03/14/20 21:00 03/16/20 21:07 Miscellaneous Medication SC 0.2 mls HS MIRIAM Administration Insulin Human Lispro 0 units 03/13/20 09:09 03/17/20 17:49 Humalog 300 Units/3 Ml Vial SC 6 unit .AGGRESSIVE SLIDING PRN Administration Aggressive Correctional Scale Isosorbide Dinitrate 20 mg 03/13/20 09:00 03/17/20 20:27 Isosorbide Dinitrate 20 Mg Tab PO 20 mg TID MIRIAM Administration Morphine Sulfate 2 mg 03/17/20 16:28 03/17/20 20:21 Morphine 2 Mg/Ml Vial SLOW IVP 2 mg Q4H PRN Administration Moderate to Severe Pain (4-10) Sodium Bicarbonate 975 mg 03/16/20 15:00 03/17/20 15:36 Sodium Bicarbonate Tab 325 Mg Tab PO 975 mg TID MIRIAM Administration Tamsulosin HCl 0.4 mg 03/18/20 09:00 Tamsulosin Hcl 0.4 Mg Cap PO DAILY [facility] Assessment and plan CKD stage IV Hypertension Anemia Metabolic acidosis -Patient's renal function is stable. Medications reviewed, avoid nephrotoxins. Patients blood pressure is uncontrolled, he is currently on Coreg, hydralazine and Isordil. Patient was started on Flomax today, if patient continues to have elevated blood pressure, we will add Procardia. Continue to monitor hemoglobin and transfuse PRBC as needed. Continue with sodium bicarbonate for metabolic acidosis Thank you for allowing me to participate in the management of this pt
[2020-03-17] MEDS ORDERED: Carvedilol 6.25 MG TAB PO SCH (17:00)
[2020-03-17] MEDS: HYDROcodone/Acetaminophen 5/325 mg Tablet PO PRN (17:37)
[2020-03-17] MEDS: HumaLOG 300 UNITS/3 ML VIAL SC PRN (17:49)
[2020-03-17] MEDS: Atorvastatin Calcium 40 MG TAB PO SCH (20:27)
[2020-03-17] MEDS: Insulin Glargine 20 UNITS in Pre-Filled Syringe 1 EACH SC SCH (20:46)
--- NOTE | 2020-03-17 23:14 | EKG ---
Test Reason : POST DEFIB Blood Pressure : / mmHG Vent. Rate : 052 BPM Atrial Rate : 052 BPM P-R Int : 182 ms QRS Dur : 104 ms QT Int : 474 ms P-R-T Axes : 057 -19 180 degrees QTc Int : 440 ms Sinus bradycardia T wave abnormality, consider inferolateral ischemia Abnormal ECG When compared with ECG of 13-MAR-2020 03:39, (Unconfirmed) Non-specific change in ST segment in Anterior leads T wave inversion no longer evident in Anterior leads Confirmed by Citlaly MONTESINOS ([id number]) on 03/17/2020 11:13:43 PM Referred By: BOSTON Confirmed By:Citlaly MONTESINOS
--- NOTE | 2020-03-17 23:14 | EKG ---
Test Reason : POST DEFIB Blood Pressure : / mmHG Vent. Rate : 050 BPM Atrial Rate : 050 BPM P-R Int : 218 ms QRS Dur : 104 ms QT Int : 472 ms P-R-T Axes : 038 -23 179 degrees QTc Int : 430 ms Electronic atrial pacemaker T wave abnormality, consider lateral ischemia Abnormal ECG When compared with ECG of 17-MAR-2020 12:38, (Unconfirmed) Electronic atrial pacemaker has replaced Sinus rhythm Confirmed by Citlaly MONTESINOS ([id number]) on 03/17/2020 11:13:46 PM Referred By: BOSTON Confirmed By:Citlaly MONTESINOS
[2020-03-18] MEDS: HYDROcodone/Acetaminophen 5/325 mg Tablet PO PRN ×3 (00:10→12:30)
[2020-03-18 04:38] LABS: #Basophils 0.1 thou/uL (0.0-0.2); #Eosinphils 0.1 thou/uL (0.0-0.7); #Monocytes 0.8 thou/uL (0.11-0.59); #Neutrophils 4.9 thou/uL (1.40-6.50); %Basophils 0.8 % (0.0-1.0); %Eosinophils 1.6 % (0.0-10.0); %Lymphocytes 25.6 % (21.0-51.0); %Monocytes 10.1 % (0.0-10.0); %Neutrophils 61.9 % (42.0-75.0); Hemoglobin 11.4 g/dL (14.0-18.0); Mean Corpuscular HGB CONC 33.3 g/dL (32.0-36.0); Mean Corpuscular Hemoglobin 30.1 pg (27.0-31.0); Mean Corpuscular Volume 90.5 fL (78.0-98.0); Mean Platelet Volume 8.9 fL (7.4-10.4); Platelet Count 175 thou/uL (130-400); RBC Distribution Width 13.9 % (11.5-14.5); Red Blood Cell (RBC) Count 3.78 mill/uL (4.70-6.10)
[2020-03-18 05:02] LABS: Anion Gap 15 mmol/L (10-20); BUN (Urea Nitrogen) 33 mg/dL (8.4-25.7); Calc. Creatinine Clearance 47 mL/min (70-130); Calcium 8.8 mg/dL (7.8-10.44); Carbon Dioxide 19 mmol/L (22-29); Chloride 112 mmol/L (98-107); Glucose 178 mg/dL (70-105); Magnesium 2.3 mg/dL (1.6-2.6); Potassium 4.5 mmol/L (3.5-5.1); Sodium 141 mmol/L (136-145)
[2020-03-18] MEDS: HumaLOG 300 UNITS/3 ML VIAL SC PRN ×2 (06:21→12:21)
--- NOTE | 2020-03-18 07:48 | PDOC.EP ---
- Subjective Date: 03/18/20 Time: 07:46 Interval History: Left upper chest wall site looks good. no drainage. Minimal tenderness. Device check this morning stable. BP up and nurses asked me to assist. Will increase Coreg but will defer to IMED/Cardiology for long-term treatment recs. - Review of Systems Constitutional: denies: chills, fever Respiratory: denies: cough Cardiology: denies: chest pain, orthopnea, pressure Gastrointestinal: denies: abdominal pain, nausea, vomitting Neurological: denies: headache - Objective Allergies/Adverse Reactions: Allergies Allergy/AdvReac Type Severity Reaction Status Date / Time No Known Allergies Allergy Verified 03/13/20 14:51 Current Medications Acetaminophen (Acetaminophen 325 Mg Tab) 650 mg PO Q4H PRN PRN Reason: Headache/Fever/Mild Pain (1-3) Hydrocodone Bitart/Acetaminophen (Hydrocodone/Acetaminophen 5/325 Mg Tablet) 1 tab PO Q4H PRN PRN Reason: Moderate Pain (4-6) Last Admin: 03/18/20 06:26 Dose: 1 tab Documented by: Albuterol/Ipratropium (Ipratropium/Albuterol Sulfate 3 Ml Neb) 3 ml NEB [id number] PRN PRN Reason: SOB &/or Wheezing Aspirin (Aspirin Chewable 81 Mg Tab) 81 mg PO DAILY [facility] Last Admin: 03/17/20 15:34 Dose: Not Given Documented by: Atorvastatin Calcium (Atorvastatin Calcium 40 Mg Tab) 40 mg PO [facility] Last Admin: 03/17/20 20:27 Dose: 40 mg Documented by: Carvedilol (Carvedilol 6.25 Mg Tab) 25 mg PO BID-[facility] Dextrose/Water (Dextrose 50% Abboject 50 Ml Syringe) 25 gm SLOW IVP PRN PRN PRN Reason: Hypoglycemia Glucagon (Glucagon 1 Mg/Ml Vial) 1 mg IM PRN PRN PRN Reason: Hypoglycemia Hydralazine HCl (Hydralazine 25 Mg Tab) 50 mg PO TID [facility] Last Admin: 03/17/20 20:24 Dose: 50 mg Documented by: Dextrose/Water (D5w) 1,000 mls @ 0 mls/hr IV .Q0M PRN PRN Reason: Hypoglycemia Insulin Glargine 20 units/ (Miscellaneous Medication) 0.2 mls @ 0 mls/hr SC [facility] Last Admin: 03/17/20 20:46 Dose: 0.2 mls Documented by: Insulin Human Lispro (Humalog 300 Units/3 Ml Vial) 0 units SC .AGGRESSIVE SLIDING PRN PRN Reason: Aggressive Correctional Scale Last Admin: 03/18/20 06:21 Dose: 3 unit Documented by: Isosorbide Dinitrate (Isosorbide Dinitrate 20 Mg Tab) 20 mg PO TID [facility] Last Admin: 03/17/20 20:27 Dose: 20 mg Documented by: Morphine Sulfate (Morphine 2 Mg/Ml Vial) 2 mg SLOW IVP Q4H PRN PRN Reason: Moderate to Severe Pain (4-10) Last Admin: 03/17/20 20:21 Dose: 2 mg Documented by: Sodium Bicarbonate (Sodium Bicarbonate Tab 325 Mg Tab) 975 mg PO TID [facility] Last Admin: 03/17/20 22:40 Dose: 975 mg Documented by: Tamsulosin HCl (Tamsulosin Hcl 0.4 Mg Cap) 0.4 mg PO DAILY [facility] Vital Signs & Weight: Vital Signs Temp Pulse Resp BP BP Pulse Ox 03/18/20 06:40 98.0 F 57 L 18 175/80 H 99 03/18/20 00:00 97.4 F L 57 L 18 177/82 H 99 03/17/20 20:24 17 L 134/60 Weight 274 lb 3.2 oz I/O: I/O 03/17/20 03/18/20 03/19/20 06:59 06:59 06:59 Intake Total 2100 1590 Output Total 2900 3050 Balance -800 -1460 - Physical Exam General: alert & oriented x3 Neck: supple neck Cardiology: regular rate and rhythm Lungs: clear to auscultation Neurology: grossly intact Abdomen: unremarkable Extremities: dry Skin: device site stable w/o swelling, left sided device Musculoskeletal: no pain - Labs Result Diagrams: 03/18/20 04:13 03/18/20 04:13 - EKG Interpretation EKG Method: Telemetry - Device Device: dual, defibrillator Device Result: [facility] - Problem (1) Hypertension Code(s): I10 - ESSENTIAL (PRIMARY) HYPERTENSION Qualifiers: Hypertension type: essential hypertension Qualified Code(s): I10 - Essential (primary) hypertension (2) Chronic systolic (congestive) heart failure Code(s): I50.22 - CHRONIC SYSTOLIC (CONGESTIVE) HEART FAILURE - Assessment/Plan Assessment/Plan: Site looks good. Ok to d/c from EP standpoint. We will arrange f/u with patient in 2 weeks for wound check at [facility]. My office will call patient. Typical post-device care instructions reviewed. Will increase Coreg to 25mg BID this AM but defer medical management to IMED/Cards/Nephrology in general.
[2020-03-18] MEDS ORDERED: Carvedilol 25 MG TAB PO SCH (08:00)
[2020-03-18 08:11] VITALS: BMI 40.4
[2020-03-18] MEDS ORDERED: Tamsulosin HCl 0.4 MG CAP PO SCH (09:00)
[2020-03-18] MEDS: Sodium Bicarbonate Tab 325 MG TAB PO SCH (09:53)
[2020-03-18] MEDS: hydrALAZINE 25 MG TAB PO SCH (09:53)
[2020-03-18] MEDS: Aspirin Chewable 81 MG TAB PO SCH (09:54)
[2020-03-18] MEDS: Isosorbide Dinitrate 20 MG TAB PO SCH (09:54)
--- NOTE | 2020-03-18 10:14 | PRG ---
DATE OF SERVICE: 03/18/2020 SUBJECTIVE: A 59-year-old gentleman, being seen for CKD. The patient denied any nausea, vomiting, or chest pain. PHYSICAL EXAMINATION: General: The patient is awake and alert. Vital Signs: Afebrile, pulse 77, breathing at 16, blood pressure 175/85. HEENT: Head normocephalic and atraumatic. Eyes intact, no ulcers. Nose intact, no ulcers. Ears intact, no ulcers. Neck: Supple. No JVD. Chest: Symmetrical and clear. Cardiovascular: Shows S1 and S2, no rub, no murmur. Gastrointestinal: Abdomen is soft, bowel sounds positive. Extremities: Show no edema or ulcers. Skin: Shows no rash or petechiae. Musculoskeletal: Shows no joint swelling or stiffness. Genitourinary: Shows no Martinez or CVA tenderness. Neurologic: Motor intact. Cranial nerves intact. LABORATORY DATA: Labs reviewed. ASSESSMENT AND PLAN: 1. CKD, stage 4, stable. 2. Hypertension, stable. 3. Anemia, stable. 4. Hyperkalemia, stable. 5. Metabolic acidosis, stable. No indication for dialysis. Job ID: [id number]
--- NOTE | 2020-03-18 10:46 | PDOC.DS.DS ---
Provider - Provider Date of Admission: 03/13/20 06:55 Admitting Provider: Julius Colby MD Primary Care Physician: Inocencio Zamorano Course - Labs Lab Results: 03/18/20 04:13 03/18/20 04:13 Abnormal Lab Results - Last 48 hrs 03/17/20 09:23: Chloride 111 H, Carbon Dioxide 18 L, BUN 36 H, Creatinine 3.15 H 03/17/20 09:23: RBC 3.59 L, Hgb 10.6 L, Hct 32.1 L, Basophils % 1.4 H 03/18/20 04:13: Chloride 112 H, Carbon Dioxide 19 L, BUN 33 H, Creatinine 2.96 H 03/18/20 04:13: RBC 3.78 L, Hgb 11.4 L, Hct 34.2 L, Monocytes % 10.1 H, Monocytes # 0.8 H - Physical Exam Vitals: Vital Signs (12 hours) Temp Pulse Resp BP Pulse Ox 03/18/20 06:40 98.0 F 57 L 18 175/80 H 99 03/18/20 00:00 97.4 F L 57 L 18 177/82 H 99 Weight Weight 273 lb 13.026 oz Physical Exam: The patient was seen and examined on the day of discharge. Plan - Discharge Medications Prescriptions: Tamsulosin HCl [Flomax] 0.4 mg PO DAILY #30 cap HYDROcodone Bit/APAP 5/325 [[place]] 1 tab PO Q4H PRN #30 tab PRN Reason: Moderate Pain (4-6) Home Medications: Medication Instructions Recorded Confirmed Type glyBURIDE [Glyburide] 5 mg PO BID 04/12/17 03/13/20 History Aspirin Chewable [Aspirin Chewable 81 mg PO DAILY #30 tab 04/15/18 03/13/20 Rx Tablet] Atorvastatin Calcium [Lipitor] 40 mg PO HS #30 tab 04/15/18 03/13/20 Rx Carvedilol [Coreg] 25 mg PO BID #60 tab 04/15/18 03/13/20 Rx Furosemide 40 mg PO DAILY #30 tab 04/15/18 03/13/20 Rx Isosorbide Dinitrate [Isordil] 20 mg PO TID #90 tab 04/15/18 03/13/20 Rx hydrALAZINE [Apresoline] 37.5 mg PO TID #90 tab 04/15/18 03/13/20 Rx HYDROcodone Bit/APAP 5/325 [[place]] 1 tab PO Q4H PRN #30 tab 03/18/20 Rx Tamsulosin HCl [Flomax] 0.4 mg PO DAILY #30 cap 03/18/20 Rx Allergies: No Known Allergies Allergy (Verified 03/13/20 14:51) - Discharge Instructions Activity:: Other Nourishment:: Diabetic Diet, Heart Healthy Diet - Follow up Plan Referrals: Cardiac Rehab - [place] [Outside] - 7 Days (Your doctor has ordered outpatient cardiac rehab for you to begin within 1-2 weeks after you go home from the hospital. The location nearest to you is the [place] [facility]. The front office in [place] will call you in 3-5 days to get you scheduled for your evaluation. If you do not receive a call, please reach out to them at [phone] and request an appointment. Should you have any trouble or need assistance, please call the cardiac rehab main line in [place] at [phone]. ) Karlee Marques MD [Primary Care Provider] - Patricio Haynes MD [Active] - 10 Days (Their office will call you to schedule an appointment for a site check of your AICD site.) Chandana Quiroz MD [Active] - 14 Days (Please call the office to follow up with Dr. Quiroz. ) Disposition: HOME
[2020-03-18 11:09] VITALS: TEMP 98.9
[2020-03-18 12:11] VITALS: BP 144/70
--- NOTE | 2020-03-19 04:56 | PQF ---
Dear : Dez Larry Date 03/19/2020 Please exercise your independent, professional judgment in responding to the clarification form. Clinical indicators are provided on the bottom of this form for your review Can you please further clarify the diagnosis of the patient? Please check appropriate box(es): [ ] Type 1 MA (NSTEMI) [ ] Type 2 MA (T2MI) secondary to please specify: [ ] Unstable Angina only [ ] ACS only [ ] Other diagnosis please specify [ ] Unable to determine Physician Signature: Date/Time: For continuity of documentation, please document condition throughout progress notes and discharge summary. Thank You. To be completed by CDI/Coding staff for physician review: Present Clinical Indicators - Signs / Symptoms / Labs Results and Location in Medical Record [ x ] Found to be mildly bradycardic H and P pg.1 [ x ] Chest X ray revealed Cardiomegaly without evidence of pulmonary edema H and P pg.1 [ x ] Chest Pain rule out ACS H and P pg.2 [ x ] Elevated troponin due to demand ischemia H and P pg.2 [ x ] NSTEMI ED Provider pg.3 [ x ] Dyspnea, possible anginal equivalent Cardiology Consult pg.2 [ x ] ST-T wave abnormality suggestive of ischemia Cardiology Consult pg.2 [ x ] Reversible myocardial ischemia Stress test Nuclear Med pg.2 [ x ] Chest Pain likely unstable angina as described by patient Hospitalist PN 03/16 pg.2 [ x ] He has not revascularization or myocardial infraction Consult 03/16 Dr. Haynes pg.2 Troponin I: 0.304H, 0.263H, 0.268H, 0.0212H Laboratory Present Risk Factors Results and Location in Medical Record [ x ] CAD H and P pg.1 [ x ] CHF H and P pg.1 [ x ] HTN H and P pg.1 [ x ] DM H and P pg.1 [ x ] Cardiomyopathy H and P pg.1 [ x ] Morbid obesity Cardiology Consult pg.2 [ x ] CKD Cardiology Consult pg.2 [ x ] High Cholesterol ED Notes 03/13 [ x ] Smoker ED Notes 03/13 [ x ] HLD H and P pg.1 Present Treatments Results and Location in Medical Record [ x ] Cardiology Consult Dr. Quiroz / [ x ] AICD placement Hospitalist PN 03/17 pg.1 [ x ] Cardiac stress test Stress test nuclear med [ x ] IV Fluids MAR [ x ] Troponin Monitoring Laboratory [ x ] Aspirin 325mg IV MAY [ x ] Morphine 2mg IV MAY [ x ] Plavix 300mg Oral MAY 30 [facility]/[employer] Signature: Jose Antonio Upton Phone #: ext [phone] Date 03/19/2020 This is a permanent part of the Medical Record [facility]
--- NOTE | 2020-03-22 14:15 | EKG ---
Test Reason : SOB Blood Pressure : / mmHG Vent. Rate : 054 BPM Atrial Rate : 054 BPM P-R Int : 170 ms QRS Dur : 098 ms QT Int : 492 ms P-R-T Axes : 036 -18 187 degrees QTc Int : 466 ms Sinus bradycardia Prolonged QT Abnormal ECG Confirmed by TOI SMYTH ([id number]), web editor ZITA STREETER ([id number]) on 03/22/2020 2:14:46 PM Referred By: Confirmed By:TOI SMYTH
== END 2020-03-18 14:27 | disposition home or self-care (01) | DRG 227 ==
LOC: ERS 03:30 → ERHOLD 06:55 → 2NO 14:24
PROVIDERS: ADMIT Student in an Organized Health Care Education/Training Program; ATTEND Internal Medicine
PROC: 8E0ZXY6 Isolation (ICD-10-PCS; 2020-03-13)
PROC: 5A09457 Assistance with Respiratory Ventilation, 24-96 Consecutive Hours, Continuous Positive Airway Pressure (ICD-10-PCS; 2020-03-13)
PROC: 0JH608Z Insertion of Defibrillator Generator into Chest Subcutaneous Tissue and Fascia, Open Approach (ICD-10-PCS; principal; 2020-03-17)
PROC: 02HK3KZ Insertion of Defibrillator Lead into Right Ventricle, Percutaneous Approach (ICD-10-PCS; 2020-03-17)
PROC: 02H63KZ Insertion of Defibrillator Lead into Right Atrium, Percutaneous Approach (ICD-10-PCS; 2020-03-17)
DX: I25.110 Atherosclerotic heart disease of native coronary artery with unstable angina pectoris (principal); I13.0 Hypertensive heart and chronic kidney disease with heart failure and stage 1 through stage 4 chronic kidney disease, or unspecified chronic kidney disease; N17.9 Acute kidney failure, unspecified; E87.2 Acidosis; I50.22 Chronic systolic (congestive) heart failure; N18.4 Chronic kidney disease, stage 4 (severe); Z68.41 Body mass index [BMI] 40.0-44.9, adult; Z23 Encounter for immunization; I42.8 Other cardiomyopathies; Z20.828 Contact with and (suspected) exposure to other viral communicable diseases; E11.22 Type 2 diabetes mellitus with diabetic chronic kidney disease; E87.5 Hyperkalemia; G47.33 Obstructive sleep apnea (adult) (pediatric); F17.210 Nicotine dependence, cigarettes, uncomplicated; D63.1 Anemia in chronic kidney disease; R00.1 Bradycardia, unspecified; E66.01 Morbid (severe) obesity due to excess calories; E11.65 Type 2 diabetes mellitus with hyperglycemia; M19.90 Unspecified osteoarthritis, unspecified site; E78.00 Pure hypercholesterolemia, unspecified; E78.5 Hyperlipidemia, unspecified; Z99.89 Dependence on other enabling machines and devices; Z79.84 Long term (current) use of oral hypoglycemic drugs; Z79.899 Other long term (current) drug therapy
CPT/HCPCS: 33249; 36415; 36416; 36600; 71045; 78452; 80048; 80053; 82553; 82805; 83036; 83735; 83880; 84484; 85007; 85025; 85027; 87635; 90471; 90662; 93005; 93010; 93017; 93306; 93970; 94660; 96365; 96375; 96376; A9500; C1721; C1777; C1898; G0008; J0690; J1580; J1644; J1815; J2250; J2270; J2405; J2704; J2785; J3370; J7070; U0003

== ENCOUNTER 2020-06-12 12:49 | Outpatient (CLI) | payer OTHER ==
[2020-06-12 14:32] LABS: #Monocytes 0.7 10x3/uL (0.0-1.1); #Neutrophils 4.1 10x3/uL (1.5-8.4); %Basophils 0.3 % (0.0-2.0); %Eosinophils 0.7 % (0.0-6.0); %Lymphocytes 18.8 % (18.0-47.0); %Monocytes 10.9 % (0.0-10.0); %Neutrophils 68.8 % (40.0-75.0); Hemoglobin 11.6 g/dL (13.5-17.5); Mean Corpuscular HGB CONC 32.5 g/dL (32.0-36.0); Mean Corpuscular Hemoglobin 28.3 pg (27.0-33.0); Mean Corpuscular Volume 87.1 fl (81.2-95.1); Mean Platelet Volume 11.4 fl (7.4-10.4); Platelet Count 167 10x3/uL (150-450)
[2020-06-12 14:34] LABS: Anion Gap 16 mmol/L (10-20); BUN (Urea Nitrogen) 42 mg/dL (8.4-25.7); Calc. Creatinine Clearance 0 mL/min (70-130); Calcium 8.6 mg/dL (7.8-10.44); Carbon Dioxide 20 mmol/L (22-29); Chloride 100 mmol/L (98-107); Glucose 424 mg/dL (70-105); Potassium 5.7 mmol/L (3.5-5.1); Sodium 130 mmol/L (136-145)
[2020-06-12 14:48] LABS: Prothrombin Time 10.6 sec (9.5-12.1)
[2020-06-13 08:56] LABS: SARS-CoV-2 PCR by NAA DETECTED (NotDetected)
== END 2020-06-12 12:50 | disposition home or self-care (01) ==
LOC: LABBT 12:49
PROVIDERS: ATTEND Orthopaedic Surgery
DX: U07.1 COVID-19 (principal); Z01.818 Encounter for other preprocedural examination; M17.12 Unilateral primary osteoarthritis, left knee
CPT/HCPCS: 80048; 85025; 85610; 87081; 87635; 93005; 93010; U0003; U0005

== ENCOUNTER 2021-03-24 18:28 | Inpatient (IN) | payer OTHER ==
[2021-03-24 21:30] VITALS: BMI 38.5
[2021-03-24] MEDS ORDERED: Dextrose 50% Abboject 50 ML SYRINGE SLOW IVP PRN ×2 (23:02→23:33)
[2021-03-24] MEDS ORDERED: Ondansetron ODT 4 MG TAB PO PRN (23:02)
[2021-03-24] MEDS ORDERED: Dextrose 5% in Water 1,000 ML IV PRN ×2 (23:02→23:33)
[2021-03-24] MEDS ORDERED: Ondansetron PF 4 MG/2 ML Vial IVP PRN (23:02)
[2021-03-24] MEDS ORDERED: Acetaminophen 650 MG Suppository PR PRN (23:02)
[2021-03-24] MEDS ORDERED: HumaLOG 300 UNITS/3 ML VIAL SC PRN ×2 (23:02)
[2021-03-24 23:47] LABS: Troponin I 2.565 ng/mL (< 0.028)
[2021-03-24] MEDS: HumaLOG 300 UNITS/3 ML VIAL SC PRN (23:51)
[2021-03-25] MEDS ORDERED: hydrALAZINE 20 MG/ML VIAL SLOW IVP PRN (00:06)
[2021-03-25 03:30] LABS: #Eosinphils 0.1 thou/uL (0.0-0.7); #Lymphocytes 2.9 thou/uL (1.20-3.40); #Monocytes 0.5 thou/uL (0.11-0.59); #Neutrophils 5.3 thou/uL (1.40-6.50); %Basophils 0.3 % (0.0-1.0); %Eosinophils 1.2 % (0.0-10.0); %Lymphocytes 32.8 % (21.0-51.0); %Monocytes 5.4 % (0.0-10.0); %Neutrophils 60.3 % (42.0-75.0); Mean Corpuscular HGB CONC 36.2 g/dL (32.0-36.0); Mean Corpuscular Hemoglobin 31.9 pg (27.0-31.0); Mean Corpuscular Volume 88.2 fL (78.0-98.0); Mean Platelet Volume 9.1 fL (7.4-10.4); Platelet Count 180 thou/uL (130-400); RBC Distribution Width 13.6 % (11.5-14.5); Red Blood Cell (RBC) Count 3.77 mill/uL (4.70-6.10); White Blood Cell (WBC) Count 8.7 thou/uL (4.8-10.8)
[2021-03-25 03:49] LABS: Anion Gap 11 mmol/L (10-20); BUN (Urea Nitrogen) 28 mg/dL (8.4-25.7); Calc. Creatinine Clearance 45 mL/min (70-130); Calcium 9.1 mg/dL (7.8-10.44); Carbon Dioxide 21 mmol/L (23-31); Chloride 106 mmol/L (98-107); Glucose 357 mg/dL (80-115); Potassium 3.8 mmol/L (3.5-5.1); Sodium 134 mmol/L (136-145)
[2021-03-25] MEDS: HumaLOG 300 UNITS/3 ML VIAL SC PRN ×2 (05:34→22:25)
[2021-03-25] MEDS: Enoxaparin Sodium 120 MG/0.8 ML SYRINGE SC SCH (08:00)
[2021-03-25] MEDS ORDERED: ISOSORBIDE DINIT PO SCH (09:00)
[2021-03-25] MEDS ORDERED: [UNRECOGNIZED DRUG - OTHER] PO SCH (09:00)
[2021-03-25] MEDS ORDERED: HYDRALAZINE PO SCH (09:00)
[2021-03-25] MEDS ORDERED: Lantus 1000 UNITS/10 ML VIAL SC SCH (10:30)
[2021-03-25] MEDS ORDERED: Aspirin Chewable 81 MG TAB PO SCH (10:30)
[2021-03-25] MEDS ORDERED: Carvedilol 25 MG TAB PO SCH (10:30)
[2021-03-25] MEDS ORDERED: Furosemide 40 MG TAB PO SCH (10:30)
[2021-03-25] MEDS: HumaLOG 300 UNITS/3 ML VIAL SC SCH ×2 (11:29→16:59)
[2021-03-25] MEDS: Isosorbide Dinitrate 20 MG TAB PO SCH ×2 (17:00→21:56)
[2021-03-25] MEDS: hydrALAZINE 25 MG TAB PO SCH ×2 (17:00→21:57)
[2021-03-25] MEDS: Carvedilol 25 MG TAB PO SCH (21:56)
[2021-03-25] MEDS: Atorvastatin Calcium 40 MG TAB PO SCH (21:57)
[2021-03-25] MEDS: Lantus 1000 UNITS/10 ML VIAL SC SCH (22:07)
[2021-03-25] MEDS ORDERED: cloNIDine 0.2 MG TAB PO SCH (23:05)
[2021-03-26 09:06] LABS: #Eosinphils 0.1 thou/uL (0.0-0.7); #Lymphocytes 2.3 thou/uL (1.20-3.40); #Monocytes 0.5 thou/uL (0.11-0.59); #Neutrophils 3.8 thou/uL (1.40-6.50); %Basophils 0.7 % (0.0-1.0); %Eosinophils 1.7 % (0.0-10.0); %Lymphocytes 33.9 % (21.0-51.0); %Neutrophils 56.6 % (42.0-75.0); Hemoglobin 11.5 g/dL (14.0-18.0); Mean Corpuscular HGB CONC 34.5 g/dL (32.0-36.0); Mean Corpuscular Hemoglobin 30.9 pg (27.0-31.0); Mean Corpuscular Volume 89.7 fL (78.0-98.0); Mean Platelet Volume 9.1 fL (7.4-10.4); Platelet Count 178 thou/uL (130-400); RBC Distribution Width 13.6 % (11.5-14.5); Red Blood Cell (RBC) Count 3.73 mill/uL (4.70-6.10); White Blood Cell (WBC) Count 6.8 thou/uL (4.8-10.8)
[2021-03-26] MEDS: HumaLOG 300 UNITS/3 ML VIAL SC SCH ×3 (09:27→16:07)
[2021-03-26] MEDS: Lantus 1000 UNITS/10 ML VIAL SC SCH ×2 (09:28→21:07)
[2021-03-26] MEDS: Carvedilol 25 MG TAB PO SCH ×2 (09:29→21:06)
[2021-03-26] MEDS: Isosorbide Dinitrate 20 MG TAB PO SCH ×3 (09:29→21:06)
[2021-03-26] MEDS: Enoxaparin Sodium 120 MG/0.8 ML SYRINGE SC SCH ×2 (09:29→21:06)
[2021-03-26] MEDS: Aspirin Chewable 81 MG TAB PO SCH (09:29)
[2021-03-26] MEDS: Furosemide 40 MG TAB PO SCH (09:29)
[2021-03-26] MEDS: hydrALAZINE 25 MG TAB PO SCH ×3 (09:29→21:05)
[2021-03-26 09:30] LABS: Anion Gap 12 mmol/L (10-20); BUN (Urea Nitrogen) 26 mg/dL (8.4-25.7); Calc. Creatinine Clearance 50 mL/min (70-130); Calcium 8.8 mg/dL (7.8-10.44); Carbon Dioxide 22 mmol/L (23-31); Chloride 108 mmol/L (98-107); Glucose 149 mg/dL (80-115); Potassium 3.6 mmol/L (3.5-5.1); Sodium 138 mmol/L (136-145)
[2021-03-26] MEDS: Acetaminophen 325 MG TAB PO PRN (21:04)
[2021-03-26] MEDS: Atorvastatin Calcium 40 MG TAB PO SCH (21:06)
[2021-03-26] MEDS: HumaLOG 300 UNITS/3 ML VIAL SC PRN (21:07)
[2021-03-27 04:44] LABS: #Eosinphils 0.1 thou/uL (0.0-0.7); #Lymphocytes 2.9 thou/uL (1.20-3.40); #Monocytes 0.8 thou/uL (0.11-0.59); #Neutrophils 4.2 thou/uL (1.40-6.50); %Basophils 0.4 % (0.0-1.0); %Eosinophils 1.7 % (0.0-10.0); %Lymphocytes 35.8 % (21.0-51.0); %Monocytes 9.8 % (0.0-10.0); %Neutrophils 52.4 % (42.0-75.0); Hemoglobin 11.3 g/dL (14.0-18.0); Mean Corpuscular HGB CONC 34.4 g/dL (32.0-36.0); Mean Corpuscular Hemoglobin 30.6 pg (27.0-31.0); Mean Corpuscular Volume 89.2 fL (78.0-98.0); Mean Platelet Volume 8.9 fL (7.4-10.4); Platelet Count 174 thou/uL (130-400); RBC Distribution Width 13.4 % (11.5-14.5); Red Blood Cell (RBC) Count 3.67 mill/uL (4.70-6.10)
[2021-03-27 04:58] LABS: Anion Gap 11 mmol/L (10-20); BUN (Urea Nitrogen) 33 mg/dL (8.4-25.7); Calc. Creatinine Clearance 45 mL/min (70-130); Calcium 9.4 mg/dL (7.8-10.44); Carbon Dioxide 23 mmol/L (23-31); Chloride 105 mmol/L (98-107); Glucose 218 mg/dL (80-115); Potassium 3.9 mmol/L (3.5-5.1); Sodium 135 mmol/L (136-145)
[2021-03-27] MEDS: HumaLOG 300 UNITS/3 ML VIAL SC PRN (06:00)
[2021-03-27] MEDS: Furosemide 40 MG TAB PO SCH (09:09)
[2021-03-27] MEDS: Enoxaparin Sodium 120 MG/0.8 ML SYRINGE SC SCH ×2 (09:09→21:50)
[2021-03-27] MEDS: hydrALAZINE 25 MG TAB PO SCH ×3 (09:09→21:47)
[2021-03-27] MEDS: Aspirin Chewable 81 MG TAB PO SCH (09:09)
[2021-03-27] MEDS: Carvedilol 25 MG TAB PO SCH ×2 (09:10→21:46)
[2021-03-27] MEDS: Lantus 1000 UNITS/10 ML VIAL SC SCH ×2 (09:10→22:13)
[2021-03-27] MEDS: HumaLOG 300 UNITS/3 ML VIAL SC SCH ×3 (09:10→16:09)
[2021-03-27] MEDS: Isosorbide Dinitrate 20 MG TAB PO SCH ×3 (09:10→21:47)
[2021-03-27] MEDS: Atorvastatin Calcium 40 MG TAB PO SCH (21:46)
[2021-03-28 05:33] LABS: #Eosinphils 0.1 thou/uL (0.0-0.7); #Lymphocytes 2.6 thou/uL (1.20-3.40); #Monocytes 0.7 thou/uL (0.11-0.59); #Neutrophils 3.4 thou/uL (1.40-6.50); %Basophils 0.7 % (0.0-1.0); %Eosinophils 1.6 % (0.0-10.0); %Lymphocytes 37.7 % (21.0-51.0); %Monocytes 10.3 % (0.0-10.0); %Neutrophils 49.7 % (42.0-75.0); Hemoglobin 12.1 g/dL (14.0-18.0); Mean Corpuscular Hemoglobin 30.7 pg (27.0-31.0); Mean Corpuscular Volume 90.4 fL (78.0-98.0); Mean Platelet Volume 9.1 fL (7.4-10.4); Platelet Count 187 thou/uL (130-400); RBC Distribution Width 13.4 % (11.5-14.5); Red Blood Cell (RBC) Count 3.95 mill/uL (4.70-6.10); White Blood Cell (WBC) Count 6.8 thou/uL (4.8-10.8)
[2021-03-28 05:55] LABS: Anion Gap 11 mmol/L (10-20); BUN (Urea Nitrogen) 26 mg/dL (8.4-25.7); Calc. Creatinine Clearance 55 mL/min (70-130); Calcium 9.2 mg/dL (7.8-10.44); Carbon Dioxide 23 mmol/L (23-31); Chloride 107 mmol/L (98-107); Glucose 111 mg/dL (80-115); Potassium 3.7 mmol/L (3.5-5.1); Sodium 137 mmol/L (136-145)
[2021-03-28] MEDS: Furosemide 40 MG TAB PO SCH (09:09)
[2021-03-28] MEDS: Isosorbide Dinitrate 20 MG TAB PO SCH ×2 (09:09→21:29)
[2021-03-28] MEDS: Aspirin Chewable 81 MG TAB PO SCH (09:09)
[2021-03-28] MEDS: Carvedilol 25 MG TAB PO SCH (09:09)
[2021-03-28] MEDS: Enoxaparin Sodium 120 MG/0.8 ML SYRINGE SC SCH (09:09)
[2021-03-28] MEDS: HumaLOG 300 UNITS/3 ML VIAL SC SCH ×2 (09:21→14:31)
[2021-03-28] MEDS: Lantus 1000 UNITS/10 ML VIAL SC SCH (09:22)
[2021-03-28] MEDS: hydrALAZINE 25 MG TAB PO SCH ×2 (11:12→21:29)
[2021-03-28] MEDS: Acetaminophen 325 MG TAB PO PRN (11:42)
[2021-03-28] MEDS: HumaLOG 300 UNITS/3 ML VIAL SC PRN (11:42)
[2021-03-28 12:45] VITALS: BP 159/79; TEMP 98.5
== END 2021-03-28 16:10 | disposition home or self-care (01) | DRG 896 ==
LOC: IMCU/EMU 21:09 → 2NO 03-25 12:53
PROVIDERS: ADMIT Internal Medicine; ATTEND Family Medicine
DX: F14.10 Cocaine abuse, uncomplicated (principal); I21.A1 Myocardial infarction type 2; I13.0 Hypertensive heart and chronic kidney disease with heart failure and stage 1 through stage 4 chronic kidney disease, or unspecified chronic kidney disease; I50.22 Chronic systolic (congestive) heart failure; I42.8 Other cardiomyopathies; N18.4 Chronic kidney disease, stage 4 (severe); I47.2 Ventricular tachycardia; Z20.822 Contact with and (suspected) exposure to COVID-19; E11.22 Type 2 diabetes mellitus with diabetic chronic kidney disease; M19.90 Unspecified osteoarthritis, unspecified site; I48.91 Unspecified atrial fibrillation; E78.00 Pure hypercholesterolemia, unspecified; F17.210 Nicotine dependence, cigarettes, uncomplicated; R00.1 Bradycardia, unspecified; E66.01 Morbid (severe) obesity due to excess calories; I25.10 Atherosclerotic heart disease of native coronary artery without angina pectoris; Z79.82 Long term (current) use of aspirin; Z86.16 Personal history of COVID-19; Z79.4 Long term (current) use of insulin; Z79.899 Other long term (current) drug therapy; Z95.0 Presence of cardiac pacemaker; Z68.38 Body mass index [BMI] 38.0-38.9, adult
CPT/HCPCS: 36415; 36416; 71045; 80048; 85025; 93005; 93010; 93306; 93970; J1650; J1815

== ENCOUNTER 2021-05-21 08:15 | Observation (INO) | payer OTHER ==
[2021-05-21 17:27] VITALS: BMI 43.7
[2021-05-21] MEDS ORDERED: Acetaminophen/Codeine 30-300mg Tablet PO PRN (17:52)
[2021-05-21] MEDS ORDERED: Sodium Chloride 0.9% 200 ML IV PRN (17:52)
[2021-05-21] MEDS ORDERED: Nitroglycerin 0.4 MG TAB (25 Tab Bottle) SL PRN (17:52)
[2021-05-21] MEDS ORDERED: Communication Order-Pharmacy FS SCH (18:00)
[2021-05-21] MEDS ORDERED: Dextrose 50% Abboject 50 ML SYRINGE IVP PRN (19:15)
[2021-05-21] MEDS ORDERED: Dextrose 5% in Water 1,000 ML IV PRN (19:15)
[2021-05-21 19:16] LABS: SARS-CoV-2 NAA Rapid Test Not Detected (NotDetected)
[2021-05-21] MEDS: Sodium Chloride 0.9% 1,000 ML IV SCH (19:41)
[2021-05-21 22:24] LABS: Glucose POC Confirmation 674 mg/dl (80-115)
[2021-05-21] MEDS ORDERED: hydrALAZINE 20 MG/ML VIAL SLOW IVP SCH (22:45)
[2021-05-21] MEDS ORDERED: Lantus 1000 UNITS/10 ML VIAL SC SCH (22:45)
[2021-05-21] MEDS ORDERED: HumaLOG 300 UNITS/3 ML VIAL SC SCH (22:45)
[2021-05-21] MEDS ORDERED: Atorvastatin Calcium 40 MG TAB PO SCH (22:45)
[2021-05-21] MEDS ORDERED: Carvedilol 25 MG TAB PO SCH (22:45)
[2021-05-21] MEDS ORDERED: hydrALAZINE 20 MG/ML VIAL SLOW IVP PRN (22:46)
[2021-05-22] MEDS: glipiZIDE 10 MG TAB PO SCH ×2 (05:34→16:20)
[2021-05-22] MEDS: HumaLOG 300 UNITS/3 ML VIAL SC SCH ×4 (05:34→16:32)
[2021-05-22] MEDS: Lantus 1000 UNITS/10 ML VIAL SC SCH ×2 (05:35→21:21)
[2021-05-22] MEDS: Furosemide 40 MG TAB PO SCH (05:35)
[2021-05-22] MEDS: Carvedilol 25 MG TAB PO SCH ×2 (06:07→21:18)
[2021-05-22] MEDS: Lisinopril 5 MG TAB PO SCH (06:07)
[2021-05-22] MEDS: hydrALAZINE 25 MG TAB PO SCH ×3 (06:07→21:19)
[2021-05-22] MEDS: Clopidogrel Bisulfate 75 MG TAB PO SCH (06:07)
[2021-05-22] MEDS: Aspirin Chewable 81 MG TAB PO SCH (06:07)
[2021-05-22] MEDS: Isosorbide Dinitrate 20 MG TAB PO SCH ×3 (06:07→21:20)
[2021-05-22] MEDS: cloNIDine 0.2 MG TAB PO SCH ×2 (06:07→21:18)
[2021-05-22] MEDS ORDERED: Lidocaine 1% (PF) 30 ML VIAL ONE (06:32)
[2021-05-22 07:06] LABS: #Eosinphils 0.1 thou/uL (0.0-0.7); #Lymphocytes 1.6 thou/uL (1.20-3.40); #Monocytes 0.5 thou/uL (0.11-0.59); #Neutrophils 4.4 thou/uL (1.40-6.50); %Basophils 0.6 % (0.0-1.0); %Eosinophils 1.9 % (0.0-10.0); %Lymphocytes 24.4 % (21.0-51.0); %Monocytes 7.5 % (0.0-10.0); %Neutrophils 65.7 % (42.0-75.0); Hemoglobin 11.8 g/dL (14.0-18.0); Mean Corpuscular HGB CONC 33.2 g/dL (32.0-36.0); Mean Corpuscular Hemoglobin 29.7 pg (27.0-31.0); Mean Corpuscular Volume 89.4 fL (78.0-98.0); Mean Platelet Volume 8.2 fL (7.4-10.4); Platelet Count 196 thou/uL (130-400); RBC Distribution Width 13.5 % (11.5-14.5); Red Blood Cell (RBC) Count 3.98 mill/uL (4.70-6.10); White Blood Cell (WBC) Count 6.7 thou/uL (4.8-10.8)
[2021-05-22] MEDS: Sodium Chloride 0.9% 1,000 ML IV SCH (07:25)
[2021-05-22 07:26] LABS: ALT (SGPT) 16 U/L (8-55); AST (SGOT) 14 U/L (5-34); Albumin 3.5 g/dL (3.4-4.8); Alkaline Phosphatase 128 U/L (40-110); Anion Gap 12 mmol/L (10-20); BUN (Urea Nitrogen) 32 mg/dL (8.4-25.7); Bilirubin, Total 0.5 mg/dL (0.2-1.2); Calc. Creatinine Clearance 59 mL/min (70-130); Calcium 8.8 mg/dL (7.8-10.44); Carbon Dioxide 22 mmol/L (23-31); Chloride 107 mmol/L (98-107); Glucose 141 mg/dL (80-115); Potassium 3.8 mmol/L (3.5-5.1); Protein, Total 6.5 g/dL (5.8-8.1); Sodium 137 mmol/L (136-145)
[2021-05-22] MEDS ORDERED: Fentanyl 250 MCG/5 ML VIAL ONE (07:54)
[2021-05-22] MEDS ORDERED: Midazolam HCl 2 mg/2 ml Vial ONE (07:54)
[2021-05-22] MEDS ORDERED: Heparin 10,000 UNITS/ 10 ML VIAL ONE (08:13)
[2021-05-22] MEDS ORDERED: Clopidogrel Bisulfate 300 MG TAB ONE (08:35)
[2021-05-22] MEDS ORDERED: Sodium Chloride 0.9% 200 ML IV PRN (08:44)
[2021-05-22] MEDS ORDERED: Sodium Chloride 0.9% 1,000 ML IV SCH (09:00)
[2021-05-22] MEDS ORDERED: Ergocalciferol 1.25 MG(50,000 UNITS) CAP PO SCH (09:00)
[2021-05-22] MEDS ORDERED: Iopamidol 370 76% 100 ML VIAL ONE (10:36)
[2021-05-22] MEDS ORDERED: Iopamidol 370 76% 50 ML VIAL FS ONE (10:36)
[2021-05-22] MEDS: HumaLOG 300 UNITS/3 ML VIAL SC PRN ×4 (11:15→21:21)
[2021-05-22] MEDS ORDERED: ISOSORBIDE DINIT PO SCH (21:00)
[2021-05-22] MEDS ORDERED: glipiZIDE 10 MG TAB PO SCH (21:00)
[2021-05-22] MEDS ORDERED: HYDRALAZINE PO SCH (21:00)
[2021-05-22] MEDS ORDERED: Atorvastatin Calcium 40 MG TAB PO SCH ×2 (21:00)
[2021-05-22] MEDS ORDERED: [UNRECOGNIZED DRUG - OTHER] PO SCH (21:00)
[2021-05-22] MEDS: Acetaminophen/Codeine 30-300mg Tablet PO PRN (21:20)
[2021-05-23 04:39] LABS: #Basophils 0.1 thou/uL (0.0-0.2); #Eosinphils 0.2 thou/uL (0.0-0.7); #Lymphocytes 2.2 thou/uL (1.20-3.40); #Monocytes 0.6 thou/uL (0.11-0.59); %Basophils 0.7 % (0.0-1.0); %Eosinophils 2.2 % (0.0-10.0); %Lymphocytes 31.8 % (21.0-51.0); %Monocytes 8.9 % (0.0-10.0); %Neutrophils 56.4 % (42.0-75.0); Hemoglobin 10.9 g/dL (14.0-18.0); Mean Corpuscular HGB CONC 33.1 g/dL (32.0-36.0); Mean Corpuscular Hemoglobin 29.8 pg (27.0-31.0); Mean Corpuscular Volume 90.1 fL (78.0-98.0); Mean Platelet Volume 8.4 fL (7.4-10.4); Platelet Count 186 thou/uL (130-400); RBC Distribution Width 13.8 % (11.5-14.5); Red Blood Cell (RBC) Count 3.65 mill/uL (4.70-6.10)
[2021-05-23 05:00] LABS: Anion Gap 12 mmol/L (10-20); BUN (Urea Nitrogen) 31 mg/dL (8.4-25.7); Calc. Creatinine Clearance 60 mL/min (70-130); Calcium 8.7 mg/dL (7.8-10.44); Carbon Dioxide 21 mmol/L (23-31); Chloride 109 mmol/L (98-107); Glucose 89 mg/dL (80-115); Potassium 3.8 mmol/L (3.5-5.1); Sodium 138 mmol/L (136-145)
[2021-05-23 07:53] VITALS: BP 147/79; TEMP 97.9
[2021-05-23] MEDS: Lantus 1000 UNITS/10 ML VIAL SC SCH (08:00)
[2021-05-23] MEDS: hydrALAZINE 25 MG TAB PO SCH (08:01)
[2021-05-23] MEDS: Carvedilol 25 MG TAB PO SCH (08:02)
[2021-05-23] MEDS: cloNIDine 0.2 MG TAB PO SCH (08:02)
[2021-05-23] MEDS: Furosemide 40 MG TAB PO SCH (08:02)
[2021-05-23] MEDS: Lisinopril 5 MG TAB PO SCH (08:03)
[2021-05-23] MEDS: glipiZIDE 10 MG TAB PO SCH (08:03)
[2021-05-23] MEDS: Aspirin Chewable 81 MG TAB PO SCH (08:03)
[2021-05-23] MEDS: Isosorbide Dinitrate 20 MG TAB PO SCH (08:03)
[2021-05-23] MEDS: Clopidogrel Bisulfate 75 MG TAB PO SCH (08:04)
[2021-05-23] MEDS: Acetaminophen/Codeine 30-300mg Tablet PO PRN (08:05)
[2021-05-23] MEDS: HumaLOG 300 UNITS/3 ML VIAL SC SCH (08:09)
[2021-05-23] MEDS ORDERED: Aspirin Chewable 81 MG TAB PO SCH (09:00)
== END 2021-05-23 11:50 | disposition home or self-care (01) ==
LOC: INTOOBSV 16:40 → 2SW 16:40
PROVIDERS: ADMIT Internal Medicine Cardiovascular Disease; ATTEND Internal Medicine Cardiovascular Disease
PROC: 02703DZ Dilation of Coronary Artery, One Artery with Intraluminal Device, Percutaneous Approach (ICD-10-PCS; principal; 2021-05-22)
PROC: 4A023N7 Measurement of Cardiac Sampling and Pressure, Left Heart, Percutaneous Approach (ICD-10-PCS; 2021-05-22)
PROC: B2111ZZ Fluoroscopy of Multiple Coronary Arteries using Low Osmolar Contrast (ICD-10-PCS; 2021-05-22)
DX: I25.10 Atherosclerotic heart disease of native coronary artery without angina pectoris (principal); R94.39 Abnormal result of other cardiovascular function study; I42.0 Dilated cardiomyopathy; I12.9 Hypertensive chronic kidney disease with stage 1 through stage 4 chronic kidney disease, or unspecified chronic kidney disease; E11.22 Type 2 diabetes mellitus with diabetic chronic kidney disease; N18.9 Chronic kidney disease, unspecified; E78.5 Hyperlipidemia, unspecified; G89.29 Other chronic pain; M54.50 Low back pain, unspecified; E66.01 Morbid (severe) obesity due to excess calories; Z68.41 Body mass index [BMI] 40.0-44.9, adult; Z86.16 Personal history of COVID-19; Z87.891 Personal history of nicotine dependence; Z79.02 Long term (current) use of antithrombotics/antiplatelets; Z79.4 Long term (current) use of insulin; Z79.82 Long term (current) use of aspirin; Z79.84 Long term (current) use of oral hypoglycemic drugs; Z79.899 Other long term (current) drug therapy; Z95.810 Presence of automatic (implantable) cardiac defibrillator; Z20.822 Contact with and (suspected) exposure to COVID-19
CPT/HCPCS: 36415; 36416; 80048; 80053; 82947; 85025; 85347; 92928; 93458; 93798; 94640; 94760; 96374; 96375; 99152; 99153; C1769; C1876; G0378; J0360; J1644; J1815; J2001; J2250; J3010; J7050; J7620; Q9967; U0002

== ENCOUNTER → 2022-03-30 | Day surgery (SDC) | payer OTHER ==
[2022-03-29 09:53] VITALS: BMI 34.8
[~2022-03-30] MED LIST: Ipratropium/Albuterol 3 ML NEB ONE; PROPOFOL 20 ML ONE
== END | disposition home or self-care (01) ==
LOC: SDC 05:38
PROVIDERS: ATTEND Internal Medicine Cardiovascular Disease
PROC: 5A2204Z Restoration of Cardiac Rhythm, Single (ICD-10-PCS; principal; 2022-03-30)
DX: I48.19 Other persistent atrial fibrillation (principal); I13.0 Hypertensive heart and chronic kidney disease with heart failure and stage 1 through stage 4 chronic kidney disease, or unspecified chronic kidney disease; E11.22 Type 2 diabetes mellitus with diabetic chronic kidney disease; N18.9 Chronic kidney disease, unspecified; I50.22 Chronic systolic (congestive) heart failure; G47.33 Obstructive sleep apnea (adult) (pediatric); E78.5 Hyperlipidemia, unspecified; F17.210 Nicotine dependence, cigarettes, uncomplicated; I47.1 Supraventricular tachycardia; I25.2 Old myocardial infarction; I42.8 Other cardiomyopathies; Z79.01 Long term (current) use of anticoagulants; Z79.4 Long term (current) use of insulin; Z79.84 Long term (current) use of oral hypoglycemic drugs; Z79.899 Other long term (current) drug therapy; Z95.810 Presence of automatic (implantable) cardiac defibrillator
CPT/HCPCS: 92960; 93005; 93010; J2704; J7620